=== PATIENT | female | born 1950 | race Caucasian/White ===

== ENCOUNTER 2018-08-16 22:27 | Inpatient (IN) | payer BC, OTHER ==
[2018-08-16 22:48] VITALS: BMI 38.9
[2018-08-16] MEDS ORDERED: Sodium Chloride 0.9% 500 ML IV STA (23:26)
[2018-08-16] MEDS ORDERED: Morphine 2 mg/ml ISec IVP STA (23:29)
[2018-08-17 00:09] LABS: BASO # 0.02 K/mm3 (0.0-2.0); BASO % 0.3 % (0.0-3.0); EOS # 0.1 (0.0-0.7); EOS % 1.6 % (1.5-5.0); HEMOGLOBIN 11.3 g/dL (12.0-16.0); LYMPH # 1.5 (1.2-3.4); LYMPH % 20.6 % (22.0-35.0); MEAN CELL VOLUME 89.9 fl (80.0-105.0); MEAN CORPUSCULAR HEMOGLOBIN 30.1 pg (25.0-35.0); MEAN CORPUSCULAR HGB CONC 33.5 g/dl (31.0-37.0); MEAN PLATELET VOLUME 9.7 fl (7.0-11.0); MONO # 0.5 (0.1-0.6); MONO % 7.1 % (1.0-6.0); RBC 3.75 10^6/uL (3.5-6.1); RED CELL DISTRIBUTION WIDTH 13.4 % (11.5-14.5); VENOUS BLOOD GAS BASE EXCESS 3.9 mmol/L (0.0-2.0); VENOUS BLOOD GAS PO2 108 mm/Hg (30-55); VENOUS BLOOD PH 7.47 (7.32-7.43); WHITE BLOOD COUNT 7.3 10^3/uL (4.5-11.0)
[2018-08-17 00:15] LABS: ALB/GLOB RATIO 1.2 (1.1-1.8); ALBUMIN 3.8 g/dL (3.0-4.8); ALT/SGPT 34 U/L (7-56); AST/SGOT 30 U/L (14-36); BLOOD UREA NITROGEN 11 mg/dL (7-21); CALCIUM 9.3 mg/dL (8.4-10.5); GFR NON-AFRICAN AMERICAN > 60
[2018-08-17 00:26] LABS: TROPONIN I < 0.01 ng/mL
[2018-08-17] MEDS ORDERED: Iohexol 350 MG/100 ML VIAL ONE (01:02)
--- NOTE | 2018-08-17 01:17 | ED PDOC ---
Arrival/HPI - General Historian: Patient - History of Present Illness Narrative History of Present Illness (Text): 08/16/18 23:20 68 year old female, whose past medical history includes CVA, who just moved back to [place] from [place], presents to the emergency department with periumbilical abdominal pain that began suddenly at 5PM today. Patient is unable to describe the pain, but states the pain went away and returned again at 7PM. She also then reports the pain went away and came back prior to arrival. Patient's son reports patient did not have a bowel movement in 3 days. Patient denies any fever, chills, chest pain, shortness of breath, nausea, vomiting, diarrhea, back pain, urinary symptoms, or any other complaints. Time/Duration: Other (today) Symptom Onset: Gradual Activities at Onset: Light Context: Home <Dorcas Kaufman - Last Filed: 08/17/18 02:21> <Reyes Nguyễn - Last Filed: 08/17/18 04:18> - General Chief Complaint: Abdominal Pain Time Seen by Provider: 08/16/18 22:38 Past Medical History - Provider Review Nursing Documentation Reviewed: Yes - Past History Past History: No Previous - Infectious Disease Hx of Infectious Diseases: None - Tetanus Immunization Tetanus Immunization: Unknown - Cardiac Hx Cardiac Disorders: Yes Hx Hypertension: Yes - Pulmonary Hx Respiratory Disorders: No - Neurological Hx Neurological Disorder: No - HEENT Hx HEENT Disorder: Yes Hx Cataracts: Yes (WITH SURGERY AND ALSO,LASER SURGERY WITH PROBLEMS WITH RETINA) - Renal Hx Renal Disorder: No - Endocrine/Metabolic Hx Endocrine Disorders: Yes Hx Diabetes Mellitus Type 2: Yes Hx Hypothyroidism: Yes - Hematological/Oncological Hx Blood Disorders: No - Integumentary Hx Dermatological Disorder: No - Musculoskeletal/Rheumatological Hx Musculoskeletal Disorders: No - Gastrointestinal Hx Gastrointestinal Disorders: No - Genitourinary/Gynecological Hx Genitourinary Disorders: No - Psychiatric Hx Psychophysiologic Disorder: No Hx Substance Use: No - Suicidal Assessment Feels Threatened In Home Enviroment: No <Dorcas Kaufman - Last Filed: 08/17/18 02:21> Family/Social History - Physician Review Nursing Documentation Reviewed: Yes Family/Social History: No Known Family HX Smoking Status: Never Smoked Hx Alcohol Use: No Hx Substance Use: No Hx Substance Use Treatment: No <Dorcas Kaufman - Last Filed: 08/17/18 02:21> Allergies/Home Meds <Dorcas Kaufman - Last Filed: 08/17/18 02:21> <Reyes Nguyễn - Last Filed: 08/17/18 04:18> Allergies/Adverse Reactions: Allergies No Known Allergies Allergy (Verified 08/16/18 22:59) Home Medications: Home Meds Medication Instructions Recorded Confirmed Amlodipine Besylate [Norvasc] 5 mg PO DAILY 03/18/13 08/16/18 Aspirin [Aspir 81] 81 mg PO DAILY 03/18/13 08/16/18 Atorvastatin [Lipitor] 20 mg PO DAILY 08/16/18 08/16/18 Clopidogrel [Plavix] 75 mg PO DAILY 08/16/18 08/16/18 Docusate Sodium [Doc-Q-Lace] 100 mg PO DAILY 08/16/18 08/16/18 Famotidine [Heartburn Prevention] 20 mg PO DAILY 08/16/18 08/16/18 Gabapentin [Neurontin] 300 mg PO DAILY 08/16/18 08/16/18 Irbesartan [Avapro] 300 mg PO DAILY 08/16/18 08/16/18 Review of Systems - Physician Review All systems were reviewed & negative as marked: Yes - Review of Systems Constitutional: absent: Fevers, Other (chills) Respiratory: absent: SOB Cardiovascular: absent: Chest Pain Gastrointestinal: Abdominal Pain. absent: Diarrhea, Nausea, Vomiting Musculoskeletal: absent: Back Pain <Dorcas Kaufman - Last Filed: 08/17/18 02:21> Physical Exam Vital Signs Reviewed: Yes Vital Signs Temp Pulse Resp BP Pulse Ox 08/17/18 01:02 98.0 F 78 18 155/57 H 98 08/16/18 22:35 98.0 F 89 18 147/64 98 Temperature: Afebrile Blood Pressure: Normal Pulse: Regular Respiratory Rate: Normal Appearance: Positive for: Well-Appearing, Non-Toxic, Comfortable Pain Distress: None Mental Status: Positive for: Alert and Oriented X 3 Finger Stick Blood Glucose: 75 - Systems Exam Head: Present: Atraumatic, Normocephalic Mouth: Present: Moist Mucous Membranes Respiratory/Chest: Present: Clear to Auscultation, Good Air Exchange. No: Respiratory Distress, Accessory Muscle Use Cardiovascular: Present: Regular Rate and Rhythm, Normal S1, S2. No: Murmurs Abdomen: Present: Tenderness (diffuse ), Scars (large ventral midline scar noted). No: Distention, Peritoneal Signs Upper Extremity: Present: Normal Inspection. No: Cyanosis, Edema Lower Extremity: Present: Normal Inspection. No: Edema Neurological: Present: GCS=15, Speech Normal Skin: Present: Warm, Dry, Normal Color. No: Rashes Psychiatric: Present: Alert, Oriented x 3 <Dorcas Kaufman - Last Filed: 08/17/18 02:21> Vital Signs Temp Pulse Resp BP Pulse Ox 08/17/18 01:02 98.0 F 78 18 155/57 H 98 08/16/18 22:35 98.0 F 89 18 147/64 98 <Reyes Nguyễn - Last Filed: 08/17/18 04:18> Medical Decision Making ED Course and Treatment: Patient is nontoxic well appearing with stable vital signs presenting with abdominal pain CBC wnl CMP NA; 131 Lipase: wnl pt seen and evaluated by dr. nguyễn 08/17/18 01:[address] room; pt vomited. 4mg zofran given. pt refused ct with IV contrast; states she doesnt like how it feels. doesnt want to take a chance of reactions; ct changed to w/o contrast. CAT scan Pending 08/17/18 02:19 case signed out to dr. nguyễn pending CT results and re-eval and disposition. - Lab Interpretations Lab Results: pO2 108 mm/Hg (30-55) H 08/16/18 23:35 VBG pH 7.47 (7.32-7.43) H 08/16/18 23:35 VBG pCO2 38.0 (40-60) L 08/16/18 23:35 VBG HCO3 27.7 mmol/l (21-28) 08/16/18 23:35 VBG Total CO2 28.9 mmol.L (22-28) H 08/16/18 23:35 VBG O2 Sat (Calc) 98.3 % (40-65) H 08/16/18 23:35 VBG Base Excess 3.9 mmol/L (0.0-2.0) H 08/16/18 23:35 VBG Potassium 4.1 mmol/L (3.6-5.2) 08/16/18 23:35 Sodium 130.0 mmol/L (132-148) L 08/16/18 23:35 Chloride 97.0 mmol/L (98-107) L 08/16/18 23:35 Glucose 86 mg/dl (65-105) 08/16/18 23:35 Lactate 1.1 mmol/L (0.7-2.1) 08/16/18 23:35 FiO2 21.0 % 08/16/18 23:35 Troponin I < 0.01 ng/mL 08/16/18 23:35 Total Bilirubin 0.9 mg/dL (0.2-1.3) 08/16/18 23:35 AST 30 U/L (14-36) 08/16/18 23:35 ALT 34 U/L (7-56) 08/16/18 23:35 Alkaline Phosphatase 76 U/L (38-126) 08/16/18 23:35 Total Protein 7.0 g/dL (5.8-8.3) 08/16/18 23:35 Albumin 3.8 g/dL (3.0-4.8) 08/16/18 23:35 Globulin 3.2 gm/dL 08/16/18 23:35 Albumin/Globulin Ratio 1.2 (1.1-1.8) 08/16/18 23:35 - RAD Interpretation Radiology Orders: 08/16/18 23:25 CHEST PORTABLE [RAD] Stat 08/16/18 23:29 ABD & PELVIS IV CONTRAST ONLY [CT] Stat - Medication Orders Current Medication Orders: Discontinued Medications Sodium Chloride (Sodium Chloride 0.9%) 500 mls @ 999 mls/hr IV .Q31M STA Stop: 08/16/18 23:56 Last Admin: 08/17/18 00:10 Dose: 999 mls/hr eMAR Start Stop Document 08/17/18 00:10 OCS (Rec: 08/17/18 00:10 OCS [id number]) Intravenous Solution Start Date 08/17/18 Start Time 00:10 End Date 08/17/18 End time 00:40 Total Infusion Time 30 Morphine Sulfate (Morphine) 2 mg IVP STAT STA Stop: 08/16/18 23:30 Last Admin: 08/17/18 00:09 Dose: 2 mg [facility] Pain Assessment Document 08/17/18 00:09 OCS (Rec: 08/17/18 00:10 OCS [facility]) Pain Reassessment Is this a pain reassessment? No Sleep Is patient sleeping during reassessment? No Presence of Pain Presence of Pain Yes Pain Scale Used Protocol: PSCALES Pain Scale Used Numeric Location Pain Location Body Site Abdomen Description Description Constant Intensity of Pain at present 10 Pain Behavior Moaning Guarding Irritability Facial Grimacing Aggravating Factors ADL's IVP Administration Document 08/17/18 00:09 OCS (Rec: 08/17/18 00:10 OCS [facility]) Charges for Administration # of IVP Administrations 1 Ondansetron HCl (Zofran Inj) 4 mg IVP STAT STA Stop: 08/16/18 23:30 Last Admin: 08/17/18 00:09 Dose: 4 mg IVP Administration Document 08/17/18 00:09 OCS (Rec: 08/17/18 00:09 OCS [facility]) Charges for Administration # of IVP Administrations 1 <Dorcas Kaufman T - Last Filed: 08/17/18 02:21> ED Course and Treatment: CT SCAN OF THE ABDOMEN AND PELVIS WITHOUT ORAL OR IV CONTRAST. Electronically signed on Aug 17, 2018 3:34:48 AM EDT by: Gene Pemberton M.D. IMPRESSION: Bilateral basilar hypoventilatory pulmonary changes. Mild cardiomegaly. Small sliding hernia. Fluid-filled distended the stomach. Distended gallbladder. Small sliding hiatal hernia. Distended bladder 08/17/18 04:06 Case discussed with medical claims examiner and Dr. Tarango who is aware and agrees with the plan. Accepts patient into his service. - Lab Interpretations Lab Results: pO2 108 mm/Hg (30-55) H 08/16/18 23:35 VBG pH 7.47 (7.32-7.43) H 08/16/18 23:35 VBG pCO2 38.0 (40-60) L 08/16/18 23:35 VBG HCO3 27.7 mmol/l (21-28) 08/16/18 23:35 VBG Total CO2 28.9 mmol.L (22-28) H 08/16/18 23:35 VBG O2 Sat (Calc) 98.3 % (40-65) H 08/16/18 23:35 VBG Base Excess 3.9 mmol/L (0.0-2.0) H 08/16/18 23:35 VBG Potassium 4.1 mmol/L (3.6-5.2) 08/16/18 23:35 Sodium 130.0 mmol/L (132-148) L 08/16/18 23:35 Chloride 97.0 mmol/L (98-107) L 08/16/18 23:35 Glucose 86 mg/dl (65-105) 08/16/18 23:35 Lactate 1.1 mmol/L (0.7-2.1) 08/16/18 23:35 FiO2 21.0 % 08/16/18 23:35 Troponin I < 0.01 ng/mL 08/16/18 23:35 Total Bilirubin 0.9 mg/dL (0.2-1.3) 08/16/18 23:35 AST 30 U/L (14-36) 08/16/18 23:35 ALT 34 U/L (7-56) 08/16/18 23:35 Alkaline Phosphatase 76 U/L (38-126) 08/16/18 23:35 Total Protein 7.0 g/dL (5.8-8.3) 08/16/18 23:35 Albumin 3.8 g/dL (3.0-4.8) 08/16/18 23:35 Globulin 3.2 gm/dL 08/16/18 23:35 Albumin/Globulin Ratio 1.2 (1.1-1.8) 08/16/18 23:35 - RAD Interpretation Radiology Orders: 08/16/18 23:25 CHEST PORTABLE [RAD] Stat 08/16/18 23:29 ABD & PELVIS W/O PO OR IV CONT [CT] Stat - Medication Orders Current Medication Orders: Discontinued Medications Sodium Chloride (Sodium Chloride 0.9%) 500 mls @ 999 mls/hr IV .Q31M STA Stop: 08/16/18 23:56 Last Admin: 08/17/18 00:10 Dose: 999 mls/hr eMAR Start Stop Document 08/17/18 00:10 OCS (Rec: 08/17/18 00:10 OCS [id number]) Intravenous Solution Start Date 08/17/18 Start Time 00:10 End Date 08/17/18 End time 00:40 Total Infusion Time 30 Morphine Sulfate (Morphine) 2 mg IVP STAT STA Stop: 08/16/18 23:30 Last Admin: 08/17/18 00:09 Dose: 2 mg MAR Pain Assessment Document 08/17/18 00:09 OCS (Rec: 08/17/18 00:10 OCS [facility]) Pain Reassessment Is this a pain reassessment? No Sleep Is patient sleeping during reassessment? No Presence of Pain Presence of Pain Yes Pain Scale Used Protocol: PSCALES Pain Scale Used Numeric Location Pain Location Body Site Abdomen Description Description Constant Intensity of Pain at present 10 Pain Behavior Moaning Guarding Irritability Facial Grimacing Aggravating Factors ADL's IVP Administration Document 08/17/18 00:09 OCS (Rec: 08/17/18 00:10 OCS [id number]) Charges for Administration # of IVP Administrations 1 Ondansetron HCl (Zofran Inj) 4 mg IVP STAT STA Stop: 08/16/18 23:30 Last Admin: 08/17/18 00:09 Dose: 4 mg IVP Administration Document 08/17/18 00:09 OCS (Rec: 08/17/18 00:09 OCS [id number]) Charges for Administration # of IVP Administrations 1 Ondansetron HCl (Zofran Inj) 4 mg IVP STAT STA Stop: 08/17/18 01:36 Last Admin: 08/17/18 01:30 Dose: 4 mg IVP Administration Document 08/17/18 01:30 OCS (Rec: 08/17/18 01:42 OCS [place] [id number]-) Charges for Administration # of IVP Administrations 1 <Reyes Nguyễn - Last Filed: 08/17/18 04:18> - Scribe Statement The provider has reviewed the documentation as recorded by the Leonidasibjessica Caputo Provider Scribe Attestation: All medical record entries made by the Scribe were at my direction and personally dictated by me. I have reviewed the chart and agree that the record accurately reflects my personal performance of the history, physical exam, medical decision making, and the department course for this patient. I have also personally directed, reviewed, and agree with the discharge instructions and disposition. <Dorcas Kaufman - Last Filed: 08/17/18 02:21> - PA / STAFF DEVELOPMENT COORDINATOR / Resident Statement DIMAS has reviewed & agrees with the documentation as recorded. DIMAS has examined the patient and agrees with the treatment plan. <Reyes Nguyễn - Last Filed: 08/17/18 04:18> Disposition/Present on Arrival - Present on Arrival Any Indicators Present on Arrival: Yes History of DVT/PE: No History of Uncontrolled Diabetes: Yes Urinary Catheter: No History of Decub. Ulcer: No History Surgical Site Infection Following: None - Disposition Disposition Time: 02:22 <Dorcas Kaufman - Last Filed: 08/17/18 02:21> - Present on Arrival Any Indicators Present on Arrival: No History of DVT/PE: No History of Uncontrolled Diabetes: No Urinary Catheter: No History of Decub. Ulcer: No History Surgical Site Infection Following: None - Disposition Have Diagnosis and Disposition been Completed?: Yes Disposition Time: 04:04 <Reyes Nguyễn - Last Filed: 08/17/18 04:18> - Disposition Diagnosis: Abdominal pain, Intractable vomiting with nausea Disposition: HOSPITALIZED Patient Problems: Current Active Problems Problem Status Onset Abdominal pain Acute Intractable vomiting with nausea Acute Condition: STABLE Referrals: PCP,NO [Primary Care Provider] - Follow up with primary Forms: [email or web address] (Macanese)
[2018-08-17 03:08] LABS: URINE BILIRUBIN NEGATIVE (NEGATIVE); URINE BLOOD NEGATIVE (NEGATIVE); URINE GLUCOSE (UA) NEGATIVE (NEGATIVE); URINE LEUKOCYTE ESTERASE MODERATE Leu/uL (NEGATIVE); URINE PROTEIN NEGATIVE mg/dL (<30 mg/dL); URINE UROBILINOGEN 0.2 E.U./dL (<1 E.U./dL)
[2018-08-17 03:18] LABS: URINE APPEARANCE SL CLOUDY (CLEAR); URINE COLOR YELLOW (YELLOW)
[2018-08-17 03:21] LABS: URINE BACTERIA FEW /hpf; URINE RBC 0 - 2 /hpf (0-2)
[2018-08-17] MEDS ORDERED: DiphenhydrAMINE 50 mg/ml Inj IVP ONE (04:02)
--- NOTE | 2018-08-17 04:27 | CP.PCM.HP ---
<Dong Patel - Last Filed: 08/17/18 05:50> History of Present Illness - History of Present Illness History of Present Illness: Dr Patel [facility] Hospitalist Service 68F PMHx of DM2, HTN, CVA (2018) presents to [facility] with a one day hx of vomiting x5, lightheadedness and abdominal pain. Reports first episode started at 8pm with an immediate onset, states she vomited her food, no blood or coffee ground appearing matter seen. She did not take anything at home to alleviate her nausea or abdominal pain. At this time her abdominal pain has resolved. Pt days she was eating normal food at home and had no new foods introduced to her diet recently. Pt reports constipation for the last 3 days. Pt says she had her stroke in [place], followed up with neurologists and therapists who advanced her diet to soft foods. Of note pt came back to [place] from [place] on 08/09, lives with sons now. Pt denies CP, SOB, FC, syncope, hematemesis, blood in stool/urine, new onset headaches, change in hearing/vision, sick contacts PMHx DM HTN CVA PSx: Abdominal lipoma? hernia? FH: mom DM Soc: former smoker 5 ppy, denies drugs alc Allergies: denies Present on Admission - Present on Admission Any Indicators Present on Admission: No Review of Systems - Constitutional Constitutional: absent: Chills, Fatigue, Fever, Headache - EENT Eyes: absent: Change in Vision Ears: absent: Disequilibrium Nose/Mouth/Throat: Dysphagia (tolerates soft foods). absent: Hoarsness, Sore Throat - Cardiovascular Cardiovascular: absent: Chest Pain, Dyspnea, Edema, Pain Radiating to Arm/Neck/Jaw, Leg Edema, Orthopnea, Palpitations, Syncope - Respiratory Respiratory: absent: Wheezing, Snoring, Chest Congestion, Pain with Coughing - Gastrointestinal Gastrointestinal: Abdominal Pain, Constipation (3 days), Nausea, Vomiting (x5). absent: Cramping, Hematemesis - Genitourinary Genitourinary: absent: Dysuria, Urinary Incontinence - Musculoskeletal Musculoskeletal: Muscle Weakness (R Upper and Lower extremities). absent: Myalgias, Numbness, Stiffness - Integumentary Integumentary: absent: Rash - Neurological Neurological: Dizziness. absent: Loss of Vision, Sensory Deficit, Syncope, Tingling, Vertigo, Weakness - Psychiatric Psychiatric: absent: Anxiety, Depression Past Patient History - Infectious Disease Hx of Infectious Diseases: None - Tetanus Immunizations Tetanus Immunization: Unknown - Past Social History Smoking Status: Never Smoked - CARDIAC Hx Cardiac Disorders: Yes Hx Hypertension: Yes - PULMONARY Hx Respiratory Disorders: No - NEUROLOGICAL Hx Neurological Disorder: No - HEENT Hx HEENT Problems: Yes Hx Cataracts: Yes (WITH SURGERY AND ALSO,LASER SURGERY WITH PROBLEMS WITH RETINA) - RENAL Hx Chronic Kidney Disease: No - ENDOCRINE/METABOLIC Hx Endocrine Disorders: Yes Hx Diabetes Mellitus Type 2: Yes Hx Hypothyroidism: Yes - HEMATOLOGICAL/ONCOLOGICAL Hx Blood Disorders: No - INTEGUMENTARY Hx Dermatological Problems: No - MUSCULOSKELETAL/RHEUMATOLOGICAL Hx Musculoskeletal Disorders: No - GASTROINTESTINAL Hx Gastrointestinal Disorders: No - GENITOURINARY/GYNECOLOGICAL Hx Genitourinary Disorders: No - PSYCHIATRIC Hx Psychophysiologic Disorder: No Hx Substance Use: No - SURGICAL HISTORY Hx Surgeries: Yes (TONSILLECTOMY) Meds Allergies/Adverse Reactions: Allergies Allergy/AdvReac Type Severity Reaction Status Date / Time No Known Allergies Allergy Verified 08/16/18 22:59 Physical Exam - Constitutional Appears: In Acute Distress - Head Exam Head Exam: ATRAUMATIC, NORMAL INSPECTION - Eye Exam Eye Exam: EOMI, Normal appearance. absent: Scleral icterus Pupil Exam: NORMAL ACCOMODATION, PERRL - ENT Exam ENT Exam: Mucous Membranes Moist - Neck Exam Neck exam: Negative for: Lymphadenopathy, Tenderness - Respiratory Exam Respiratory Exam: Clear to Auscultation Bilateral. absent: Rales, Wheezes, Stridor - Cardiovascular Exam Cardiovascular Exam: RRR, +S1, +S2 - GI/Abdominal Exam GI & Abdominal Exam: Normal Bowel Sounds, Soft. absent: Firm, Guarding, Rebound, Tenderness - Extremities Exam Extremities exam: Negative for: pedal edema, tenderness - Neurological Exam Neurological exam: Alert, CN II-XII Intact, Oriented x3 Additional comments: R upper and lower extremity motor deficits noted - Skin Skin Exam: Diaphoretic, Pallor, Warm Results - Vital Signs Recent Vital Signs: Last Vital Signs Temp 98.0 F 08/17/18 02:26 Pulse 84 08/17/18 02:26 Resp 18 08/17/18 02:26 BP 149/65 08/17/18 02:26 Pulse Ox 100 08/17/18 02:26 - Labs Result Diagrams: 08/16/18 23:35 08/16/18 23:35 Labs: Laboratory Results - last 24 hr 08/16/18 08/16/18 08/16/18 23:35 23:35 23:35 WBC 7.3 RBC 3.75 Hgb 11.3 L Hct 33.7 L MCV 89.9 MCH 30.1 MCHC 33.5 RDW 13.4 Plt Count 216 MPV 9.7 Neut % (Auto) 70.4 H Lymph % (Auto) 20.6 L Sanders % (Auto) 7.1 H Eos % (Auto) 1.6 Baso % (Auto) 0.3 Lymph # (Auto) 1.5 Sanders # (Auto) 0.5 Eos # (Auto) 0.1 Baso # (Auto) 0.02 Absolute Neuts (auto) 5.12 pO2 108 H VBG pH 7.47 H VBG pCO2 38.0 L VBG HCO3 27.7 VBG Total CO2 28.9 H VBG O2 Sat (Calc) 98.3 H VBG Base Excess 3.9 H VBG Potassium 4.1 Sodium 130.0 L 131 L Chloride 97.0 L 94 L Glucose 86 Lactate 1.1 FiO2 21.0 Potassium 3.7 Carbon Dioxide 26 Anion Gap 15 BUN 11 Creatinine 0.7 Est GFR ( Amer) > 60 Est GFR (Non-Af Amer) > 60 Random Glucose 84 Calcium 9.3 Total Bilirubin 0.9 AST 30 ALT 34 Alkaline Phosphatase 76 Lactate Dehydrogenase 749 H Total Creatine Kinase 39 Troponin I < 0.01 Total Protein 7.0 Albumin 3.8 Globulin 3.2 Albumin/Globulin Ratio 1.2 Lipase Venous Blood Potassium 4.1 Urine Color Urine Appearance Urine pH Ur Specific [place] Urine Protein Urine Glucose (UA) Urine Ketones Urine Blood Urine Nitrate Urine Bilirubin Urine Urobilinogen Ur Leukocyte Esterase Urine RBC Urine WBC Ur Epithelial Cells Urine Bacteria 08/16/18 08/17/18 23:35 02:17 WBC RBC Hgb Hct MCV MCH MCHC RDW Plt Count MPV Neut % (Auto) Lymph % (Auto) Sanders % (Auto) Eos % (Auto) Baso % (Auto) Lymph # (Auto) Sanders # (Auto) Eos # (Auto) Baso # (Auto) Absolute Neuts (auto) pO2 VBG pH VBG pCO2 VBG HCO3 VBG Total CO2 VBG O2 Sat (Calc) VBG Base Excess VBG Potassium Sodium Chloride Glucose Lactate FiO2 Potassium Carbon Dioxide Anion Gap BUN Creatinine Est GFR ( Amer) Est GFR (Non-Af Amer) Random Glucose Calcium Total Bilirubin AST ALT Alkaline Phosphatase Lactate Dehydrogenase Total Creatine Kinase Troponin I Total Protein Albumin Globulin Albumin/Globulin Ratio Lipase 52 Venous Blood Potassium Urine Color Yellow Urine Appearance Sl cloudy Urine pH 6.0 Ur Specific [place] <= 1.005 Urine Protein Negative Urine Glucose (UA) Negative Urine Ketones Negative Urine Blood Negative Urine Nitrate Negative Urine Bilirubin Negative Urine Urobilinogen 0.2 Ur Leukocyte Esterase Moderate H Urine RBC 0 - 2 Urine WBC 5 - 10 H Ur Epithelial Cells 3 - 4 Urine Bacteria Few Assessment & Plan - Assessment and Plan (Free Text) Assessment: 68F pmhx of DM HTN CVA admitted for intractable vomiting Plan: Intractable Vomiting -prelim read CT abd neg for acute disease process: f/u official read -Zofran and Reglan q4 ivp prn -LRs @ 75 -Monitor electrolytes on f/u cmp -GI Dr Lebron consulted: f/u recs -Pepcid 20 ivp daily -NPO Constipation -Lactulose 20 stat dose -monitor for BMs Asymptomatic UTI -afebrile, WBCS on cbc wnl -UA pos Leuk est and WBCs -pt denies symptoms -awaiting Urine Culture -Monitor I&Os DM2 -ISS medium -f/u A1C: r/o possible Diabetic Gastroparesis -Hypoglycemic protocol HTN -Norvasc 2.5 daily -Losartan 100mg Hx of CVA -NPO: when advancing diet, do not exceed soft foods -Fall Risk Protocol -ASA 81 daily -Plavix 75 daily PPx -Pepcid 20 ivp -NPO except meds -Heparin 5000u q8 -ASA , Plavix -Fall risk protocol CK PGY1 <Korey Tarango - Last Filed: 08/17/18 15:58> Results - Vital Signs Recent Vital Signs: Last Vital Signs Temp 98.0 F 08/17/18 07:00 Pulse 90 08/17/18 07:00 Resp 20 08/17/18 07:00 BP 144/68 08/17/18 09:30 Pulse Ox 99 08/17/18 07:00 - Labs Result Diagrams: 08/17/18 08:00 08/17/18 08:00 Labs: Laboratory Results - last 24 hr 08/16/18 08/16/18 08/16/18 23:35 23:35 23:35 WBC 7.3 RBC 3.75 Hgb 11.3 L Hct 33.7 L MCV 89.9 MCH 30.1 MCHC 33.5 RDW 13.4 Plt Count 216 MPV 9.7 Neut % (Auto) 70.4 H Lymph % (Auto) 20.6 L Sanders % (Auto) 7.1 H Eos % (Auto) 1.6 Baso % (Auto) 0.3 Lymph # (Auto) 1.5 Sanders # (Auto) 0.5 Eos # (Auto) 0.1 Baso # (Auto) 0.02 Absolute Neuts (auto) 5.12 pO2 108 H VBG pH 7.47 H VBG pCO2 38.0 L VBG HCO3 27.7 VBG Total CO2 28.9 H VBG O2 Sat (Calc) 98.3 H VBG Base Excess 3.9 H VBG Potassium 4.1 Sodium 130.0 L 131 L Chloride 97.0 L 94 L Glucose 86 Lactate 1.1 FiO2 21.0 Potassium 3.7 Carbon Dioxide 26 Anion Gap 15 BUN 11 Creatinine 0.7 Est GFR ( Amer) > 60 Est GFR (Non-Af Amer) > 60 POC Glucose (mg/dL) Random Glucose 84 Hemoglobin A1c Calcium 9.3 Total Bilirubin 0.9 AST 30 ALT 34 Alkaline Phosphatase 76 Lactate Dehydrogenase 749 H Total Creatine Kinase 39 Troponin I < 0.01 Total Protein 7.0 Albumin 3.8 Globulin 3.2 Albumin/Globulin Ratio 1.2 Lipase Venous Blood Potassium 4.1 Urine Color Urine Appearance Urine pH Ur Specific [place] Urine Protein Urine Glucose (UA) Urine Ketones Urine Blood Urine Nitrate Urine Bilirubin Urine Urobilinogen Ur Leukocyte Esterase Urine RBC Urine WBC Ur Epithelial Cells Urine Bacteria 08/16/18 08/16/18 08/17/18 23:35 23:46 02:17 WBC RBC Hgb Hct MCV MCH MCHC RDW Plt Count MPV Neut % (Auto) Lymph % (Auto) Sanders % (Auto) Eos % (Auto) Baso % (Auto) Lymph # (Auto) Sanders # (Auto) Eos # (Auto) Baso # (Auto) Absolute Neuts (auto) pO2 VBG pH VBG pCO2 VBG HCO3 VBG Total CO2 VBG O2 Sat (Calc) VBG Base Excess VBG Potassium Sodium Chloride Glucose Lactate FiO2 Potassium Carbon Dioxide Anion Gap BUN Creatinine Est GFR ( Amer) Est GFR (Non-Af Amer) POC Glucose (mg/dL) 75 Random Glucose Hemoglobin A1c Calcium Total Bilirubin AST ALT Alkaline Phosphatase Lactate Dehydrogenase Total Creatine Kinase Troponin I Total Protein Albumin Globulin Albumin/Globulin Ratio Lipase 52 Venous Blood Potassium Urine Color Yellow Urine Appearance Sl cloudy Urine pH 6.0 Ur Specific [place] <= 1.005 Urine Protein Negative Urine Glucose (UA) Negative Urine Ketones Negative Urine Blood Negative Urine Nitrate Negative Urine Bilirubin Negative Urine Urobilinogen 0.2 Ur Leukocyte Esterase Moderate H Urine RBC 0 - 2 Urine WBC 5 - 10 H Ur Epithelial Cells 3 - 4 Urine Bacteria Few 08/17/18 08/17/18 08/17/18 07:46 08:00 08:00 WBC 5.2 D RBC 3.64 Hgb 10.7 L Hct 32.5 L MCV 89.3 MCH 29.4 MCHC 32.9 RDW 13.1 Plt Count 185 MPV 8.9 Neut % (Auto) 75.8 H Lymph % (Auto) 20.1 L Sanders % (Auto) 3.1 Eos % (Auto) 0.4 L Baso % (Auto) 0.6 Lymph # (Auto) 1.1 L Sanders # (Auto) 0.2 Eos # (Auto) 0.0 Baso # (Auto) 0.03 Absolute Neuts (auto) 3.96 pO2 VBG pH VBG pCO2 VBG HCO3 VBG Total CO2 VBG O2 Sat (Calc) VBG Base Excess VBG Potassium Sodium 135 Chloride 99 Glucose Lactate FiO2 Potassium 4.5 Carbon Dioxide 27 Anion Gap 12 BUN 10 Creatinine 0.7 Est GFR ( Amer) > 60 Est GFR (Non-Af Amer) > 60 POC Glucose (mg/dL) 145 H Random Glucose 138 H Hemoglobin A1c Calcium 9.2 Total Bilirubin 0.7 AST 22 ALT 29 Alkaline Phosphatase 75 Lactate Dehydrogenase Total Creatine Kinase Troponin I Total Protein 6.6 Albumin 3.4 Globulin 3.1 Albumin/Globulin Ratio 1.1 Lipase Venous Blood Potassium Urine Color Urine Appearance Urine pH Ur Specific [place] Urine Protein Urine Glucose (UA) Urine Ketones Urine Blood Urine Nitrate Urine Bilirubin Urine Urobilinogen Ur Leukocyte Esterase Urine RBC Urine WBC Ur Epithelial Cells Urine Bacteria 08/17/18 08/17/18 08:00 11:35 WBC RBC Hgb Hct MCV MCH MCHC RDW Plt Count MPV Neut % (Auto) Lymph % (Auto) Sanders % (Auto) Eos % (Auto) Baso % (Auto) Lymph # (Auto) Sanders # (Auto) Eos # (Auto) Baso # (Auto) Absolute Neuts (auto) pO2 VBG pH VBG pCO2 VBG HCO3 VBG Total CO2 VBG O2 Sat (Calc) VBG Base Excess VBG Potassium Sodium Chloride Glucose Lactate FiO2 Potassium Carbon Dioxide Anion Gap BUN Creatinine Est GFR ( Amer) Est GFR (Non-Af Amer) POC Glucose (mg/dL) 128 H Random Glucose Hemoglobin A1c 8.5 H Calcium Total Bilirubin AST ALT Alkaline Phosphatase Lactate Dehydrogenase Total Creatine Kinase Troponin I Total Protein Albumin Globulin Albumin/Globulin Ratio Lipase Venous Blood Potassium Urine Color Urine Appearance Urine pH Ur Specific [place] Urine Protein Urine Glucose (UA) Urine Ketones Urine Blood Urine Nitrate Urine Bilirubin Urine Urobilinogen Ur Leukocyte Esterase Urine RBC Urine WBC Ur Epithelial Cells Urine Bacteria Attending/Attestation - Attestation I have personally seen and examined this patient.: Yes I have fully participated in the care of the patient.: Yes I have reviewed all pertinent clinical information: Yes Notes (Text): 08/17/18 15:57 Patient was seen when she was in bed # 360-02. Medical record was reviewed. Agree with history, physical examination, assessment and plan.
[2018-08-17] MEDS ORDERED: Dextrose 50% SYRINGE Inj (50 ml) IV PRN (05:46)
[2018-08-17 08:16] LABS: BASO # 0.03 K/mm3 (0.0-2.0); BASO % 0.6 % (0.0-3.0); EOS % 0.4 % (1.5-5.0); HEMOGLOBIN 10.7 g/dL (12.0-16.0); LYMPH # 1.1 (1.2-3.4); LYMPH % 20.1 % (22.0-35.0); MEAN CELL VOLUME 89.3 fl (80.0-105.0); MEAN CORPUSCULAR HEMOGLOBIN 29.4 pg (25.0-35.0); MEAN CORPUSCULAR HGB CONC 32.9 g/dl (31.0-37.0); MEAN PLATELET VOLUME 8.9 fl (7.0-11.0); MONO # 0.2 (0.1-0.6); MONO % 3.1 % (1.0-6.0); RBC 3.64 10^6/uL (3.5-6.1); RED CELL DISTRIBUTION WIDTH 13.1 % (11.5-14.5); WHITE BLOOD COUNT 5.2 10^3/uL (4.5-11.0)
[2018-08-17] MEDS: Insulin Reg-MEDIUM-Coverage SC SCH ×4 (08:22→21:53)
[2018-08-17 08:29] LABS: ALB/GLOB RATIO 1.1 (1.1-1.8); ALBUMIN 3.4 g/dL (3.0-4.8); ALT/SGPT 29 U/L (7-56); AST/SGOT 22 U/L (14-36); BLOOD UREA NITROGEN 10 mg/dL (7-21); CALCIUM 9.2 mg/dL (8.4-10.5); GFR NON-AFRICAN AMERICAN > 60
--- NOTE | 2018-08-17 08:34 | CON ---
DATE: 08/17/2018 HISTORY OF PRESENT ILLNESS: I examined Ms. Buck this morning. She is a 68-year-old female with past medical history of diabetes, hypertension, a stroke in 2018, presented with history of one day of vomiting with moderate abdominal pain. There is no evidence of rectal bleeding or hematemesis. She indicates that since her recent surgery, she had being having pain in the periumbilical area as well as in the suprapubic area. When I tried to ask her what sort of surgery she had, could not elaborate probably based on stroke issues and language barrier. She pointed to a midline abdominal scar, which most likely resulted from a laparotomy and possible hernia repair. The patient is a poor historian and does mention that she speaks broken Icelandic, but still does not elaborate her problems well. PHYSICAL EXAMINATION VITAL SIGNS: I reviewed this patient's vital signs. HEENT: Noncontributory. LUNGS: Decreased breath sounds at the bases. HEART: Irregular rhythm. ABDOMEN: Barely protuberant. Mild tenderness in the epigastric area noted. There is mild tenderness in the area of the right lower quadrant, right periumbilical as well as the suprapubic area. She does not seem to be tender in the area of the left paraumbilical and all four quadrants. LABORATORY DATA: Indicate normal white count. H and H were 11/33, platelet count 216. Chemistry; sodium 131, LDH 749. Urine has elevated white cells and leukocyte esterase. CT is not interpreted at the current time point, but does indicate distended gallbladder, also the urine bladder is markedly enlarged. She has a substantial amount of stool located in the area of the cecum to the proximal ascending colon. The stomach is distended. Previous CT scan was not significant for a mesh type of thing that you would see in her hernia repair. ASSESSMENT AND PLAN: This is a 68-year-old female admitted with a history of apparent nausea and vomiting with a persistent abdominal pain, which has been occurring after her surgical procedure, which I presume she had in [place]. Note that I reviewed the patient's current medications one of which includes Plavix. The official report of the CT will be reported later. At the current time point, because of nonspecific problems suggest a surgical consult and continue with the current medications including lactated Ringer's and Zofran. One may want to stop Reglan at the current time point due to the current issues of possible partial bowel obstruction type picture. The patient is currently on Pepcid intravenous. Ricky Alcantar DO, PhD LIS[facility]ET
--- NOTE | 2018-08-17 09:09 | RAD ---
Date of service: 08/16/2018 HISTORY: abd pain COMPARISON: 03/09/2013 TECHNIQUE: 1 view obtained. FINDINGS: LUNGS: No active pulmonary disease. PLEURA: No significant pleural effusion identified, no pneumothorax apparent. CARDIOVASCULAR: No aortic atherosclerotic calcification present. Normal cardiac size. No pulmonary vascular congestion. OSSEOUS STRUCTURES: No significant abnormalities. VISUALIZED UPPER ABDOMEN: Normal. OTHER FINDINGS: None. IMPRESSION: No active disease.
[2018-08-17] MEDS: Lactated Ringer's 1,000 ML IV SCH (09:43)
--- NOTE | 2018-08-17 10:22 | CT ---
PROCEDURE: CT Abdomen and Pelvis without Oral or IV contrast. HISTORY: abd pain COMPARISON: Gallbladder ultrasound performed 03/09/13 TECHNIQUE: Contiguous axial images of the abdomen and pelvis. No oral or IV contrast administered. Coronal and Sagittal reformats generated and reviewed. Radiation dose: Total exam DLP = 1460.91 mGy-cm. This CT exam was performed using one or more of the following dose reduction techniques: Automated exposure control, adjustment of the mA and/or kV according to patient size, and/or use of iterative reconstruction technique. FINDINGS: There is limited evaluation of the solid organs without the administration of IV contrast. LOWER THORAX: No visible consolidation, pleural effusion, or pneumothorax. LIVER: Unremarkable. GALLBLADDER AND BILE DUCTS: Gallbladder distension PANCREAS: Unremarkable. SPLEEN: Unremarkable. ADRENALS: Bilateral adrenal gland nodular hypertrophy. 8 mm left adrenal gland nodule measures less than 10 HU consistent with adenoma. KIDNEYS AND URETERS: No hydronephrosis or obstructing renal calculus. BLADDER: Urinary bladder distension. REPRODUCTIVE: Uterus is absent consistent with hysterectomy. APPENDIX: The appendix is not identified; correlate for history of appendectomy. No secondary signs of acute appendicitis. BOWEL: The stomach is nondistended. Lack of oral contrast limits evaluation for bowel pathology. The bowel loops appear within normal limits of caliber without evidence of intestinal obstruction. PERITONEUM: No significant free fluid. No definite free air. LYMPH NODES: No bulky lymphadenopathy identified. VASCULATURE: Atherosclerotic calcifications of the aorta. No aortic aneurysm. BONES: Degenerative changes of the spine. OTHER FINDINGS: None. IMPRESSION: Gallbladder distension. No calcified gallstones identified. Distended urinary bladder. Bilateral adrenal gland nodular hypertrophy. 8 mm left adrenal gland nodule measures less than 10 HU consistent with adenoma. Additional findings as above. Preliminary impression was provided by [facility].
--- NOTE | 2018-08-17 15:17 | CT ---
Date of service: 08/17/2018 PROCEDURE: CT HEAD WITHOUT CONTRAST. HISTORY: hx of stroke COMPARISON: None available. TECHNIQUE: Axial computed tomography images were obtained through the head/brain without intravenous contrast. Radiation dose: Total exam DLP = 914.41 mGy-cm. This CT exam was performed using one or more of the following dose reduction techniques: Automated exposure control, adjustment of the mA and/or kV according to patient size, and/or use of iterative reconstruction technique. FINDINGS: HEMORRHAGE: No intracranial hemorrhage. BRAIN: Diffuse atrophy with prominence of the ventricles and sulci noted. No mass effect or edema. Intracranial atherosclerosis. Hypodense region within the left thalamus and left occipital lobe consistent with infarction. Scattered white matter hypodensities, which are nonspecific, but often seen with chronic microvascular ischemic disease. Please note that MRI with diffusion imaging is more sensitive in the detection of acute ischemic event. VENTRICLES: No hydrocephalus. CALVARIUM: Unremarkable. PARANASAL SINUSES: Mucosal thickening of the ethmoid air cells. MASTOID AIR CELLS: Unremarkable as visualized. No inflammatory changes. OTHER FINDINGS: None. IMPRESSION: Hypodense region within the left thalamus and left occipital lobe consistent with infarction. Additional findings as above. Please note that MRI with diffusion imaging is more sensitive in the detection of acute ischemic event.
--- NOTE | 2018-08-17 16:33 | CP.PCM.CON ---
<Alan Posey - Last Filed: 08/17/18 16:34> History of Present Illness - History of Present Illness History of Present Illness: Alan Posey PGY2 Neurology Consult Note for Dr. Chowdary Consult Requested by: Dr. Hedrick [id number] PMHx of DM2, HTN, CVA (2018) presented to [facility] with a one day hx of vomiting x5, lightheadedness and abdominal pain. We are consulted for aphasia, and questionable baseline mental status. Patient is unable to provide history. Family told ED initially patient had a recent stroke in [place]. Unable to obtain full ROS. PMHx DM HTN CVA PSx: Abdominal hernia FH: mom DM Soc: former smoker 5 ppy, denies drugs alc Allergies: denies Review of Systems - Review of Systems Review of Systems: unable to obtain due to mental status Past Patient History - Infectious Disease Hx of Infectious Diseases: None - Tetanus Immunizations Tetanus Immunization: Unknown - Past Social History Smoking Status: Never Smoked - CARDIAC Hx Hypertension: Yes - PULMONARY Hx Respiratory Disorders: No - NEUROLOGICAL HX Cerebrovascular Accident: Yes (x2; june 2018, also 2018) - HEENT Hx HEENT Problems: Yes Hx Cataracts: Yes (WITH SURGERY AND ALSO,LASER SURGERY WITH PROBLEMS WITH RETINA) - RENAL Hx Chronic Kidney Disease: No - ENDOCRINE/METABOLIC Hx Diabetes Mellitus Type 2: Yes - HEMATOLOGICAL/ONCOLOGICAL Hx Blood Disorders: No - INTEGUMENTARY Hx Dermatological Problems: No - MUSCULOSKELETAL/RHEUMATOLOGICAL Hx Musculoskeletal Disorders: No - GASTROINTESTINAL Hx Gastrointestinal Disorders: No - GENITOURINARY/GYNECOLOGICAL Hx Genitourinary Disorders: No - PSYCHIATRIC Hx Psychophysiologic Disorder: No Hx Substance Use: No - SURGICAL HISTORY Hx Surgeries: Yes (TONSILLECTOMY) Meds Allergies/Adverse Reactions: Allergies Allergy/AdvReac Type Severity Reaction Status Date / Time No Known Allergies Allergy Verified 08/16/18 22:59 - Medications Medications: Current Medications Amlodipine Besylate (Norvasc) 2.5 mg PO DAILY [facility] Last Admin: 08/17/18 09:30 Dose: 2.5 mg Aspirin (Ecotrin) 81 mg PO DAILY [facility] Last Admin: 08/17/18 09:29 Dose: 81 mg Atorvastatin Calcium (Lipitor) 20 mg PO DAILY [facility] Last Admin: 08/17/18 09:29 Dose: 20 mg Clopidogrel Bisulfate (Plavix) 75 mg PO DAILY [facility] Last Admin: 08/17/18 09:31 Dose: 75 mg Dextrose (Dextrose 50% Inj) 0 ml IV STAT PRN; Protocol PRN Reason: Hypoglycemia Protocol Docusate Sodium (Colace) 100 mg PO DAILY [facility] Last Admin: 08/17/18 14:12 Dose: 100 mg Famotidine (Pepcid) 20 mg IVP DAILY [facility] Last Admin: 08/17/18 09:31 Dose: 20 mg Gabapentin (Neurontin) 300 mg PO DAILY [facility]; Protocol Last Admin: 08/17/18 09:29 Dose: 300 mg Heparin Sodium (Porcine) (Heparin) 5,000 units SC Q8 [facility]; Protocol Last Admin: 08/17/18 14:12 Dose: 5,000 units Lactated Ringer's (Lactated Ringer's) 1,000 mls @ 75 mls/hr IV .[id number] [facility] Last Admin: 08/17/18 09:43 Dose: 75 mls/hr Dextrose (Dextrose 5% In Water 1000 Ml) 1,000 mls @ 0 mls/hr IV .Q0M PRN; Protocol PRN Reason: Hypoglycemia Protocol Insulin Human Regular (Humulin R Med) 0 units SC ACHS [facility]; Protocol Last Admin: 08/17/18 12:55 Dose: Not Given Losartan Potassium (Cozaar) 100 mg PO DAILY [facility] Last Admin: 08/17/18 09:29 Dose: 100 mg Metoclopramide HCl (Reglan) 10 mg IVP Q4 [facility] Last Admin: 08/17/18 14:13 Dose: 10 mg Ondansetron HCl (Zofran Inj) 4 mg IVP Q4 PRN PRN Reason: Nausea/Vomiting Physical Exam - Constitutional Appears: No Acute Distress - Head Exam Head Exam: ATRAUMATIC, NORMAL INSPECTION, NORMOCEPHALIC - Eye Exam Eye Exam: EOMI, Normal appearance Pupil Exam: PERRL - ENT Exam ENT Exam: Mucous Membranes Moist - Neurological Exam Neurological exam: Alert Additional comments: right sided upper and lower extremity weakness, receptive and expressive aphasia, right sensory decreased upper and lower Results - Vital Signs Recent Vital Signs: Last Vital Signs Temp 97.2 F L 08/17/18 16:27 Pulse 76 08/17/18 16:27 Resp 18 08/17/18 16:27 BP 113/69 08/17/18 16:27 Pulse Ox 97 08/17/18 16:27 - Labs Result Diagrams: 08/17/18 08:00 08/17/18 08:00 Labs: Laboratory Results - last 24 hr 08/16/18 08/16/18 08/16/18 23:35 23:35 23:35 WBC 7.3 RBC 3.75 Hgb 11.3 L Hct 33.7 L MCV 89.9 MCH 30.1 MCHC 33.5 RDW 13.4 Plt Count 216 MPV 9.7 Neut % (Auto) 70.4 H Lymph % (Auto) 20.6 L [place] % (Auto) 7.1 H Eos % (Auto) 1.6 Baso % (Auto) 0.3 Lymph # (Auto) 1.5 [place] # (Auto) 0.5 Eos # (Auto) 0.1 Baso # (Auto) 0.02 Absolute Neuts (auto) 5.12 pO2 108 H VBG pH 7.47 H VBG pCO2 38.0 L VBG HCO3 27.7 VBG Total CO2 28.9 H VBG O2 Sat (Calc) 98.3 H VBG Base Excess 3.9 H VBG Potassium 4.1 Sodium 130.0 L 131 L Chloride 97.0 L 94 L Glucose 86 Lactate 1.1 FiO2 21.0 Potassium 3.7 Carbon Dioxide 26 Anion Gap 15 BUN 11 Creatinine 0.7 Est GFR ( Amer) > 60 Est GFR (Non-Af Amer) > 60 POC Glucose (mg/dL) Random Glucose 84 Hemoglobin A1c Calcium 9.3 Total Bilirubin 0.9 AST 30 ALT 34 Alkaline Phosphatase 76 Lactate Dehydrogenase 749 H Total Creatine Kinase 39 Troponin I < 0.01 Total Protein 7.0 Albumin 3.8 Globulin 3.2 Albumin/Globulin Ratio 1.2 Lipase Venous Blood Potassium 4.1 Urine Color Urine Appearance Urine pH Ur Specific [place] Urine Protein Urine Glucose (UA) Urine Ketones Urine Blood Urine Nitrate Urine Bilirubin Urine Urobilinogen Ur Leukocyte Esterase Urine RBC Urine WBC Ur Epithelial Cells Urine Bacteria 08/16/18 08/16/18 08/17/18 23:35 23:46 02:17 WBC RBC Hgb Hct MCV MCH MCHC RDW Plt Count MPV Neut % (Auto) Lymph % (Auto) [place] % (Auto) Eos % (Auto) Baso % (Auto) Lymph # (Auto) [place] # (Auto) Eos # (Auto) Baso # (Auto) Absolute Neuts (auto) pO2 VBG pH VBG pCO2 VBG HCO3 VBG Total CO2 VBG O2 Sat (Calc) VBG Base Excess VBG Potassium Sodium Chloride Glucose Lactate FiO2 Potassium Carbon Dioxide Anion Gap BUN Creatinine Est GFR ( Amer) Est GFR (Non-Af Amer) POC Glucose (mg/dL) 75 Random Glucose Hemoglobin A1c Calcium Total Bilirubin AST ALT Alkaline Phosphatase Lactate Dehydrogenase Total Creatine Kinase Troponin I Total Protein Albumin Globulin Albumin/Globulin Ratio Lipase 52 Venous Blood Potassium Urine Color Yellow Urine Appearance Sl cloudy Urine pH 6.0 Ur Specific [place] <= 1.005 Urine Protein Negative Urine Glucose (UA) Negative Urine Ketones Negative Urine Blood Negative Urine Nitrate Negative Urine Bilirubin Negative Urine Urobilinogen 0.2 Ur Leukocyte Esterase Moderate H Urine RBC 0 - 2 Urine WBC 5 - 10 H Ur Epithelial Cells 3 - 4 Urine Bacteria Few 08/17/18 08/17/18 08/17/18 07:46 08:00 08:00 WBC 5.2 D RBC 3.64 Hgb 10.7 L Hct 32.5 L MCV 89.3 MCH 29.4 MCHC 32.9 RDW 13.1 Plt Count 185 MPV 8.9 Neut % (Auto) 75.8 H Lymph % (Auto) 20.1 L [place] % (Auto) 3.1 Eos % (Auto) 0.4 L Baso % (Auto) 0.6 Lymph # (Auto) 1.1 L [place] # (Auto) 0.2 Eos # (Auto) 0.0 Baso # (Auto) 0.03 Absolute Neuts (auto) 3.96 pO2 VBG pH VBG pCO2 VBG HCO3 VBG Total CO2 VBG O2 Sat (Calc) VBG Base Excess VBG Potassium Sodium 135 Chloride 99 Glucose Lactate FiO2 Potassium 4.5 Carbon Dioxide 27 Anion Gap 12 BUN 10 Creatinine 0.7 Est GFR ( Amer) > 60 Est GFR (Non-Af Amer) > 60 POC Glucose (mg/dL) 145 H Random Glucose 138 H Hemoglobin A1c Calcium 9.2 Total Bilirubin 0.7 AST 22 ALT 29 Alkaline Phosphatase 75 Lactate Dehydrogenase Total Creatine Kinase Troponin I Total Protein 6.6 Albumin 3.4 Globulin 3.1 Albumin/Globulin Ratio 1.1 Lipase Venous Blood Potassium Urine Color Urine Appearance Urine pH Ur Specific [place] Urine Protein Urine Glucose (UA) Urine Ketones Urine Blood Urine Nitrate Urine Bilirubin Urine Urobilinogen Ur Leukocyte Esterase Urine RBC Urine WBC Ur Epithelial Cells Urine Bacteria 08/17/18 08/17/18 08/17/18 08:00 11:35 16:03 WBC RBC Hgb Hct MCV MCH MCHC RDW Plt Count MPV Neut % (Auto) Lymph % (Auto) [place] % (Auto) Eos % (Auto) Baso % (Auto) Lymph # (Auto) [place] # (Auto) Eos # (Auto) Baso # (Auto) Absolute Neuts (auto) pO2 VBG pH VBG pCO2 VBG HCO3 VBG Total CO2 VBG O2 Sat (Calc) VBG Base Excess VBG Potassium Sodium Chloride Glucose Lactate FiO2 Potassium Carbon Dioxide Anion Gap BUN Creatinine Est GFR ( Amer) Est GFR (Non-Af Amer) POC Glucose (mg/dL) 128 H 75 Random Glucose Hemoglobin A1c 8.5 H Calcium Total Bilirubin AST ALT Alkaline Phosphatase Lactate Dehydrogenase Total Creatine Kinase Troponin I Total Protein Albumin Globulin Albumin/Globulin Ratio Lipase Venous Blood Potassium Urine Color Urine Appearance Urine pH Ur Specific [place] Urine Protein Urine Glucose (UA) Urine Ketones Urine Blood Urine Nitrate Urine Bilirubin Urine Urobilinogen Ur Leukocyte Esterase Urine RBC Urine WBC Ur Epithelial Cells Urine Bacteria Assessment & Plan - Assessment and Plan (Free Text) Plan: Aphasia -likely from previous stroke -CT head shows hypodense region within left thalamus and left occipital lobe consistent with infarction -MRI ordered to rule out acute stroke -continue to monitor mental status <Myke Chowdary - Last Filed: 08/19/18 21:02> Meds - Medications Medications: Current Medications Amlodipine Besylate (Norvasc) 2.5 mg PO DAILY [facility] Last Admin: 08/19/18 10:24 Dose: 2.5 mg Aspirin (Ecotrin) 81 mg PO DAILY [facility] Last Admin: 08/19/18 10:24 Dose: 81 mg Atorvastatin Calcium (Lipitor) 40 mg PO DAILY [facility] Last Admin: 08/19/18 10:24 Dose: 40 mg Clopidogrel Bisulfate (Plavix) 75 mg PO DAILY [facility] Last Admin: 08/18/18 10:57 Dose: 75 mg Dextrose (Dextrose 50% Inj) 0 ml IV STAT PRN; Protocol PRN Reason: Hypoglycemia Protocol Docusate Sodium (Colace) 100 mg PO DAILY [facility] Last Admin: 08/19/18 10:24 Dose: 100 mg Famotidine (Pepcid) 20 mg IVP DAILY [facility] Last Admin: 08/19/18 10:23 Dose: 20 mg Gabapentin (Neurontin) 300 mg PO DAILY [facility]; Protocol Last Admin: 08/19/18 10:24 Dose: 300 mg Heparin Sodium (Porcine) (Heparin) 5,000 units SC Q8 [facility]; Protocol Last Admin: 08/19/18 16:19 Dose: Not Given Lactated Ringer's (Lactated Ringer's) 1,000 mls @ 75 mls/hr IV .[id number] [facility] Last Admin: 08/19/18 10:23 Dose: 75 mls/hr Dextrose (Dextrose 5% In Water 1000 Ml) 1,000 mls @ 0 mls/hr IV .Q0M PRN; Protocol PRN Reason: Hypoglycemia Protocol Insulin Human Regular (Humulin R Med) 0 units SC ACHS [facility]; Protocol Last Admin: 08/19/18 16:25 Dose: 3 unit Losartan Potassium (Cozaar) 100 mg PO DAILY [facility] Last Admin: 08/19/18 10:24 Dose: 100 mg Ondansetron HCl (Zofran Inj) 4 mg IVP Q4 PRN PRN Reason: Nausea/Vomiting Results - Vital Signs Recent Vital Signs: Last Vital Signs Temp 98.0 F 08/19/18 06:00 Pulse 74 08/19/18 10:00 Resp 18 08/19/18 06:00 BP 176/75 H 08/19/18 10:24 Pulse Ox 99 08/19/18 06:00 - Labs Result Diagrams: 08/19/18 06:30 08/19/18 06:30 Labs: Laboratory Results - last 24 hr 08/18/18 08/19/18 08/19/18 21:38 06:30 06:30 WBC 4.0 L RBC 3.76 Hgb 11.2 L Hct 35.0 L MCV 93.1 MCH 29.8 MCHC 32.0 RDW 13.3 Plt Count 212 MPV 9.7 Neut % (Auto) 54.7 Lymph % (Auto) 34.9 [place] % (Auto) 6.2 H Eos % (Auto) 3.7 Baso % (Auto) 0.5 Lymph # (Auto) 1.4 [place] # (Auto) 0.3 Eos # (Auto) 0.2 Baso # (Auto) 0.02 Absolute Neuts (auto) 2.19 Sodium 142 Potassium 3.9 Chloride 105 Carbon Dioxide 29 Anion Gap 11 BUN 8 Creatinine 0.7 Est GFR ( Amer) > 60 Est GFR (Non-Af Amer) > 60 POC Glucose (mg/dL) 181 H Random Glucose 182 H Calcium 9.1 Phosphorus 3.7 Magnesium 1.9 Total Bilirubin 0.4 AST 25 ALT 30 Alkaline Phosphatase 79 Total Protein 6.4 Albumin 3.3 Globulin 3.1 Albumin/Globulin Ratio 1.1 08/19/18 08/19/18 08/19/18 07:31 11:38 16:03 WBC RBC Hgb Hct MCV MCH MCHC RDW Plt Count MPV Neut % (Auto) Lymph % (Auto) [place] % (Auto) Eos % (Auto) Baso % (Auto) Lymph # (Auto) [place] # (Auto) Eos # (Auto) Baso # (Auto) Absolute Neuts (auto) Sodium Potassium Chloride Carbon Dioxide Anion Gap BUN Creatinine Est GFR ( Amer) Est GFR (Non-Af Amer) POC Glucose (mg/dL) 200 H 235 H 219 H Random Glucose Calcium Phosphorus Magnesium Total Bilirubin AST ALT Alkaline Phosphatase Total Protein Albumin Globulin Albumin/Globulin Ratio Attending/Attestation - Attestation I have personally seen and examined this patient.: Yes I have fully participated in the care of the patient.: Yes I have reviewed all pertinent clinical information: Yes Notes (Text): I agree with the assessment and plan. Likely chronic symptoms from previous stroke.
--- NOTE | 2018-08-17 16:51 | CP.PCM.PN ---
Subjective - Date & Time of Evaluation Date of Evaluation: 08/17/18 Time of Evaluation: 16:45 - Subjective Subjective: see NIHSS Objective - Vital Signs/Intake and Output Vital Signs (last 24 hours): Temp Pulse Resp BP Pulse Ox 97.2 F L 76 18 113/69 97 08/17/18 16:27 08/17/18 16:27 08/17/18 16:27 08/17/18 16:27 08/17/18 16:27 - Medications Medications: Current Medications Amlodipine Besylate (Norvasc) 2.5 mg PO DAILY [facility] Last Admin: 08/17/18 09:30 Dose: 2.5 mg Aspirin (Ecotrin) 81 mg PO DAILY [facility] Last Admin: 08/17/18 09:29 Dose: 81 mg Atorvastatin Calcium (Lipitor) 20 mg PO DAILY [facility] Last Admin: 08/17/18 09:29 Dose: 20 mg Clopidogrel Bisulfate (Plavix) 75 mg PO DAILY [facility] Last Admin: 08/17/18 09:31 Dose: 75 mg Dextrose (Dextrose 50% Inj) 0 ml IV STAT PRN; Protocol PRN Reason: Hypoglycemia Protocol Docusate Sodium (Colace) 100 mg PO DAILY [facility] Last Admin: 08/17/18 14:12 Dose: 100 mg Famotidine (Pepcid) 20 mg IVP DAILY [facility] Last Admin: 08/17/18 09:31 Dose: 20 mg Gabapentin (Neurontin) 300 mg PO DAILY [facility]; Protocol Last Admin: 08/17/18 09:29 Dose: 300 mg Heparin Sodium (Porcine) (Heparin) 5,000 units SC Q8 [facility]; Protocol Last Admin: 08/17/18 14:12 Dose: 5,000 units Lactated Ringer's (Lactated Ringer's) 1,000 mls @ 75 mls/hr IV .[id number] [facility] Last Admin: 08/17/18 09:43 Dose: 75 mls/hr Dextrose (Dextrose 5% In Water 1000 Ml) 1,000 mls @ 0 mls/hr IV .Q0M PRN; Protocol PRN Reason: Hypoglycemia Protocol Insulin Human Regular (Humulin R Med) 0 units SC ACHS [facility]; Protocol Last Admin: 08/17/18 16:36 Dose: Not Given Losartan Potassium (Cozaar) 100 mg PO DAILY [facility] Last Admin: 08/17/18 09:29 Dose: 100 mg Metoclopramide HCl (Reglan) 10 mg IVP Q4 [facility] Last Admin: 08/17/18 14:13 Dose: 10 mg Ondansetron HCl (Zofran Inj) 4 mg IVP Q4 PRN PRN Reason: Nausea/Vomiting - Labs Labs: 08/17/18 08:00 08/17/18 08:00 NIHSS Stroke Scale - Date/Time Evaluation Performed Date Performed: 08/17/18 Time Performed: 16:53 When Was NIHSS Performed: Baseline - How Severe is the Stoke Level of Consciousness: 0=Alert LOC to Questions: 0=Both comments correct LOC to commands: 0=Obeys both correctly Best Gaze: 0=Normal Visual: 0=No visual loss Facial: 0=Normal Motor Arm - Left: 0=No drift Motor Arm - Right: 2=Falls before 10 sec Motor Leg - Left: 0=No drift Motor Leg - Right: 2=Falls before 5 sec Limb Ataxia: 1=Present Upper or Lower Sensory: 0=Normal Best Language: 1=Mild to moderate aphasia (Per son who translates, occasionally word salad) Dysarthia: 0=Normal articulation Extinction & Inattention (Neglect): 0=Normal, no object Score: 6
--- NOTE | 2018-08-17 20:51 | CARD ---
APPROVED REPORT Date of service: 08/17/2018 EKG Measurement Heart [id number] <Conclusion> Normal sinus rhythm Poor R Progression V1-V3. Non Specific ST_T Changes.
[2018-08-18] MEDS: Lactated Ringer's 1,000 ML IV SCH ×2 (03:30→17:13)
[2018-08-18 08:22] LABS: BASO # 0.02 K/mm3 (0.0-2.0); BASO % 0.6 % (0.0-3.0); EOS # 0.1 (0.0-0.7); EOS % 3.4 % (1.5-5.0); LYMPH # 1.1 (1.2-3.4); LYMPH % 31.6 % (22.0-35.0); MEAN CELL VOLUME 93.3 fl (80.0-105.0); MEAN CORPUSCULAR HEMOGLOBIN 29.6 pg (25.0-35.0); MEAN CORPUSCULAR HGB CONC 31.8 g/dl (31.0-37.0); MEAN PLATELET VOLUME 9.7 fl (7.0-11.0); MONO # 0.2 (0.1-0.6); MONO % 6.7 % (1.0-6.0); RBC 3.71 10^6/uL (3.5-6.1); RED CELL DISTRIBUTION WIDTH 13.6 % (11.5-14.5); WHITE BLOOD COUNT 3.6 10^3/uL (4.5-11.0)
[2018-08-18] MEDS: Insulin Reg-MEDIUM-Coverage SC SCH ×4 (08:23→21:43)
[2018-08-18 08:32] LABS: ALBUMIN 3.1 g/dL (3.0-4.8); ALT/SGPT 31 U/L (7-56); AST/SGOT 31 U/L (14-36); BLOOD UREA NITROGEN 8 mg/dL (7-21); CALCIUM 9.2 mg/dL (8.4-10.5); GFR NON-AFRICAN AMERICAN > 60
[2018-08-18 08:45] LABS: HDL CHOLESTEROL 29 mg/dL (29-60)
[2018-08-18 08:56] LABS: LDL CHOLESTEROL 68 mg/dL (0-129)
--- NOTE | 2018-08-18 10:40 | PN ---
DATE: 08/18/2018 SUBJECTIVE: I examined Ms. Buck this morning. She is a 68-year-old female mainly with complaints of nausea, vomiting, and abdominal pain prior to admission. At bedside this morning, the patient appears to be improved relative to exam yesterday. There are no complaints of nausea or vomiting. Abdominal pain has resolved. She is passing urine. She tolerated the liquid diet with no problems. She requested increase in diet consistency through small portions of soft. The patient is speaking in perfect Portuguese today. Yesterday, she had difficulty. Some degree of aphasia noted. Radiology evaluation of neck MRA, head MRI, brain MRI, head CT, etc. I reviewed this case with nurses on the unit this morning. PHYSICAL EXAMINATION: VITAL SIGNS: I reviewed this patient's vital signs. HEENT: Noncontributory. LUNGS: Decreased breath sounds at the bases. HEART: Irregular rhythm. ABDOMEN: Soft, protuberant. No tenderness elicited in any quadrant. LABORATORY DATA: H and H slightly down from yesterday. Most recent H and H 10.7 and 32. I reviewed the patient's last chemistry results. Note that the head CT did not find any new intracranial hemorrhages. There was diffuse atrophy. No mass effect. She has got a white matter hypodensity. No hydrocephalus. MRA studies and MRI are still pending interpretation. ASSESSMENT AND PLAN: This is a 68-year-old female admitted for complaints of nausea and vomiting prior to admission which include also abdominal pain. Symptoms appeared to be resolved, she is unaware of her diet, also she is speaking better today relative to yesterday. The patient now would maintain current orders except for dietary advance. Suggest increase the diet to small portions of soft this morning. Not much to offer in this case. The house staff will follow up later on regarding neurological issues later on this morning. I will sign off today. Ricky Alcantar DO, PhD [facility]
--- NOTE | 2018-08-18 12:26 | MRI ---
Date of service: 08/17/2018 PROCEDURE: MRI BRAIN WITHOUT CONTRAST HISTORY: stroke COMPARISON: None available. TECHNIQUE: Multiplanar, multisequence MR images of the brain were obtained without intravenous contrast enhancement. FINDINGS: HEMORRHAGE: There is a chronic appearing hemorrhagic infarct in the left occipital lobe. DWI: No evidence of an acute or early subacute infarction. BRAIN PARENCHYMA: No mass effect or edema. There is a chronic appearing hemorrhagic infarct in the left occipital lobe. There is also a chronic appearing infarct in the left thalamus VENTRICLES: Unremarkable. No hydrocephalus. CRANIUM: Unremarkable. ORBITS: Grossly unremarkable. PARANASAL SINUSES/MASTOIDS: Clear VASCULAR SYSTEM: Skull base flow voids intact. OTHER FINDINGS: The report concurs with the preliminary [facility] report IMPRESSION: There is a chronic appearing hemorrhagic infarct in the left occipital lobe. There is also a chronic appearing infarct in the left thalamus
--- NOTE | 2018-08-18 12:28 | MRI ---
Date of service: 08/17/2018 PROCEDURE: MR Angiography of the neck without contrast HISTORY: stroke COMPARISON: None available. TECHNIQUE: 3D [id number] angiography of the neck was performed. Rotating maximum intensity projection images of the cervical carotid and vertebral arteries were generated. The origins of the common carotid arteries were not visualized, which is a limitation inherent to the non-contrast time of flight technique. FINDINGS: RIGHT CAROTID ARTERIES: Common Carotid Artery: Normal. Carotid Bifurcation: Normal. Internal Carotid Artery:Normal. External Carotid Artery (proximal branches): Normal. LEFT CAROTID ARTERIES: Common Carotid Artery: Normal. Carotid Bifurcation: Normal. Internal Carotid Artery:Normal. External Carotid Artery (proximal branches): Normal. VERTEBRAL ARTERIES: Right Vertebral Artery: Normal. Left Vertebral Artery: Normal. OTHER FINDINGS: None. IMPRESSION: Normal MR Angiography of the neck.
--- NOTE | 2018-08-18 12:29 | MRI ---
Date of service: 08/17/2018 PROCEDURE: Magnetic Resonance Angiography Brain HISTORY: stroke COMPARISON: None available. TECHNIQUE: 3D time of flight MR angiography of the intracranial arteries was performed. Rotating maximum intensity projection images were generated. FINDINGS: INTERNAL CAROTID ARTERIES: Unremarkable. The skull base, petrous, cavernous and supraclinoid segments are bilaterally widely patient. ANTERIOR CEREBRAL ARTERIES: Unremarkable. A1 and A2 segments are widely patent. Smaller distal branches unremarkable, as visualized. MIDDLE CEREBRAL ARTERIES: Unremarkable. M1 and M2 segments are widely patent. Perisylvian branches grossly symmetric. POSTERIOR CIRCULATION: Basilar Artery: Unremarkable. Distal Vertebral Arteries: Unremarkable. Posterior Cerebral Arteries: Unremarkable. Posterior Inferior Cerebellar Arteries: Unremarkable. ANEURYSM/ VASCULAR MALFORMATIONS: None. OTHER FINDINGS: The report concurs with the preliminary [facility] report IMPRESSION: Unremarkable MR angiography of the brain.
--- NOTE | 2018-08-18 15:11 | CP.PCM.PN ---
<Anirudh Mendez - Last Filed: 08/18/18 15:08> Subjective - Date & Time of Evaluation Date of Evaluation: 08/18/18 Time of Evaluation: 08:00 - Subjective Subjective: Anirudh Mendez PGY1 Medicine Progress Note for Dr. Hedrick Patient seen at bedside this morning. She is AAOx3. She is alert, awake, and oriented. She is more responsive than on admission. Denies cp, sob, n/v/d, weakness, pain. No adverse overnight events. A full 12 point ROS was conducted and unremarkable except as stated above. Objective - Vital Signs/Intake and Output Vital Signs (last 24 hours): Temp Pulse Resp BP Pulse Ox 98.2 F 84 20 143/73 99 08/18/18 06:00 08/18/18 14:00 08/18/18 06:00 08/18/18 10:58 08/18/18 06:00 Intake and Output: 08/18/18 08/18/18 06:59 18:59 Intake Total 840 Output Total 2000 Balance -1160 - Medications Medications: Current Medications Amlodipine Besylate (Norvasc) 2.5 mg PO DAILY [facility] Last Admin: 08/18/18 10:58 Dose: 2.5 mg Aspirin (Ecotrin) 81 mg PO DAILY [facility] Last Admin: 08/18/18 11:01 Dose: 81 mg Atorvastatin Calcium (Lipitor) 40 mg PO DAILY [facility] Clopidogrel Bisulfate (Plavix) 75 mg PO DAILY [facility] Last Admin: 08/18/18 10:57 Dose: 75 mg Dextrose (Dextrose 50% Inj) 0 ml IV STAT PRN; Protocol PRN Reason: Hypoglycemia Protocol Docusate Sodium (Colace) 100 mg PO DAILY [facility] Last Admin: 08/18/18 10:57 Dose: 100 mg Famotidine (Pepcid) 20 mg IVP DAILY [facility] Last Admin: 08/18/18 10:57 Dose: 20 mg Gabapentin (Neurontin) 300 mg PO DAILY [facility]; Protocol Last Admin: 08/18/18 10:58 Dose: 300 mg Heparin Sodium (Porcine) (Heparin) 5,000 units SC Q8 [facility]; Protocol Last Admin: 08/18/18 14:56 Dose: 5,000 units Lactated Ringer's (Lactated Ringer's) 1,000 mls @ 75 mls/hr IV .[id number] [facility] Last Admin: 08/18/18 03:30 Dose: 75 mls/hr Dextrose (Dextrose 5% In Water 1000 Ml) 1,000 mls @ 0 mls/hr IV .Q0M PRN; Protocol PRN Reason: Hypoglycemia Protocol Insulin Human Regular (Humulin R Med) 0 units SC ACHS [facility]; Protocol Last Admin: 08/18/18 12:44 Dose: 1 unit Losartan Potassium (Cozaar) 100 mg PO DAILY [facility] Last Admin: 08/18/18 10:58 Dose: 100 mg Ondansetron HCl (Zofran Inj) 4 mg IVP Q4 PRN PRN Reason: Nausea/Vomiting - Labs Labs: 08/18/18 07:00 08/18/18 07:00 - Constitutional Appears: In Acute Distress - Head Exam Head Exam: ATRAUMATIC, NORMAL INSPECTION - Eye Exam Eye Exam: EOMI, Normal appearance. absent: Scleral icterus Pupil Exam: NORMAL ACCOMODATION, PERRL - ENT Exam ENT Exam: Mucous Membranes Moist - Neck Exam Neck exam: Negative for: Lymphadenopathy, Tenderness - Respiratory Exam Respiratory Exam: Clear to Auscultation Bilateral. absent: Rales, Wheezes, Stridor - Cardiovascular Exam Cardiovascular Exam: RRR, +S1, +S2 - GI/Abdominal Exam GI & Abdominal Exam: Normal Bowel Sounds, Soft. absent: Firm, Guarding, Rebound, Tenderness - Extremities Exam Extremities exam: Negative for: pedal edema, tenderness - Neurological Exam Neurological exam: Alert, CN II-XII Intact, Oriented x3. No facial droop or slurring of speech. Additional comments: Motor strength is 5/5. Sensation to all distal extremities intact. - Skin Skin Exam: Diaphoretic, Pallor, Warm Assessment and Plan - Assessment and Plan (Free Text) Assessment: 68F with PMHx of DM, HTN, CVA admitted for intractable nausea/vomiting and CVA - acute vs chronic. Plan: Intractable Vomiting - CT A/P: gallbladder distention. No gallstones. Distended urinary bladder. Biateral adrenal gland nodular hypertrophy. 8 mm left adrenal gland nodule. - c/w Zofran - c/w colace - c/w LRs @ 75 - Diet advanced to dysphagia diet as per GI - GI (Dr Lebron) consulted, recs appreciated. 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 Requires MRI to determine whether acute or chronic. - Brain MRI: chronic appearing hemorrhagic infarct in the left occipital lobe. There is also a chronic appearing infarct in the left thalamus - Head MRA: Unremarkable MR angiography of the brain. - Neck MRA: Normal MR Angiography of the neck. - c/w fall risk - Neurology on consult (Dr. Chowdary). Recs appreciated. Asymptomatic UTI - afebrile, no leukocytosis - no antibiotics at this time - f/u Urine Culture results - UA pos Leuk est and WBCs - blood cx negative x2 (prelim) DM2 - ISS medium - A1c 8.5 HTN - c/w Norvasc 2.5 daily - c/w Losartan 100mg HLD - c/w lipitor 40mg PO daily PPx - Pepcid 20 ivp - Dysphagia diet - Heparin 5000u q8 Dispo: Monitor patient on remote telemetry. Patient needs Acute Rehab as per PT recommendations. Case was discussed and reviewed with Attending Physician, Dr. Hedrick <Shaunna Hedrick - Last Filed: 08/18/18 16:05> Objective - Vital Signs/Intake and Output Vital Signs (last 24 hours): Temp Pulse Resp BP Pulse Ox 98.2 F 84 20 143/73 99 08/18/18 06:00 08/18/18 14:00 08/18/18 06:00 08/18/18 10:58 08/18/18 06:00 Intake and Output: 08/18/18 08/18/18 06:59 18:59 Intake Total 840 Output Total 2000 Balance -1160 - Medications Medications: Current Medications Amlodipine Besylate (Norvasc) 2.5 mg PO DAILY [facility] Last Admin: 08/18/18 10:58 Dose: 2.5 mg Aspirin (Ecotrin) 81 mg PO DAILY [facility] Last Admin: 08/18/18 11:01 Dose: 81 mg Atorvastatin Calcium (Lipitor) 40 mg PO DAILY [facility] Clopidogrel Bisulfate (Plavix) 75 mg PO DAILY [facility] Last Admin: 08/18/18 10:57 Dose: 75 mg Dextrose (Dextrose 50% Inj) 0 ml IV STAT PRN; Protocol PRN Reason: Hypoglycemia Protocol Docusate Sodium (Colace) 100 mg PO DAILY [facility] Last Admin: 08/18/18 10:57 Dose: 100 mg Famotidine (Pepcid) 20 mg IVP DAILY [facility] Last Admin: 08/18/18 10:57 Dose: 20 mg Gabapentin (Neurontin) 300 mg PO DAILY [facility]; Protocol Last Admin: 08/18/18 10:58 Dose: 300 mg Heparin Sodium (Porcine) (Heparin) 5,000 units SC Q8 [facility]; Protocol Last Admin: 08/18/18 14:56 Dose: 5,000 units Lactated Ringer's (Lactated Ringer's) 1,000 mls @ 75 mls/hr IV .[id number] [facility] Last Admin: 08/18/18 03:30 Dose: 75 mls/hr Dextrose (Dextrose 5% In Water 1000 Ml) 1,000 mls @ 0 mls/hr IV .Q0M PRN; Protocol PRN Reason: Hypoglycemia Protocol Insulin Human Regular (Humulin R Med) 0 units SC ACHS [facility]; Protocol Last Admin: 08/18/18 12:44 Dose: 1 unit Losartan Potassium (Cozaar) 100 mg PO DAILY [facility] Last Admin: 08/18/18 10:58 Dose: 100 mg Ondansetron HCl (Zofran Inj) 4 mg IVP Q4 PRN PRN Reason: Nausea/Vomiting - Labs Labs: 08/18/18 07:00 08/18/18 07:00 Attending/Attestation - Attestation I have personally seen and examined this patient.: Yes I have fully participated in the care of the patient.: Yes I have reviewed all pertinent clinical information, including history, physical exam and plan: Yes Notes (Text): 08/18/18 15:53 68 year old female with past medical history of CVA, hypertension and diabetes who presented with intractable nausea/vomiting with abdominal pain (resolved). CT abd/pelvis showed gallbladder distention without calcified gallstones and bilateral adrenal gland nodular hypertrophy. Recommended outpatient follow up. GI symptoms resolved. GI is following. Patient is tolerating diet. CT head showed hypodense region within the left thalamus and left occipital lobe consistent with infarction. MRI brain showed chronic appearing hemorrhagic infarct in the left occipital lobe and chronic apprearing infarct in the left thalamus. MRA head/neck were negative. Patient is on aspirin, plavix and statin. Will follow up with neurology recommendations. PT is following also and recommended acute rehab. Will follow up with CMx/Sw on Monday. UA noted. However is asymptomatic. Monitor off antibiotics. Shaunna Hedrick MD Hospitalist.
--- NOTE | 2018-08-18 23:17 | CP.PCM.PN ---
Subjective - Date & Time of Evaluation Date of Evaluation: 08/18/18 Time of Evaluation: 23:16 - Subjective Subjective: # 24 angiocath was inserted in left forearm. Has no complaints. Stable. Objective - Vital Signs/Intake and Output Vital Signs (last 24 hours): Temp Pulse Resp BP Pulse Ox 98.6 F 81 20 158/82 H 99 08/18/18 16:30 08/18/18 18:00 08/18/18 16:30 08/18/18 17:06 08/18/18 16:30 Intake and Output: 08/18/18 08/19/18 18:59 06:59 Intake Total 825 Balance 825 - Medications Medications: Current Medications Amlodipine Besylate (Norvasc) 2.5 mg PO DAILY [facility] Last Admin: 08/18/18 10:58 Dose: 2.5 mg Aspirin (Ecotrin) 81 mg PO DAILY [facility] Last Admin: 08/18/18 11:01 Dose: 81 mg Atorvastatin Calcium (Lipitor) 40 mg PO DAILY [facility] Clopidogrel Bisulfate (Plavix) 75 mg PO DAILY [facility] Last Admin: 08/18/18 10:57 Dose: 75 mg Dextrose (Dextrose 50% Inj) 0 ml IV STAT PRN; Protocol PRN Reason: Hypoglycemia Protocol Docusate Sodium (Colace) 100 mg PO DAILY [facility] Last Admin: 08/18/18 10:57 Dose: 100 mg Famotidine (Pepcid) 20 mg IVP DAILY [facility] Last Admin: 08/18/18 10:57 Dose: 20 mg Gabapentin (Neurontin) 300 mg PO DAILY [facility]; Protocol Last Admin: 08/18/18 10:58 Dose: 300 mg Heparin Sodium (Porcine) (Heparin) 5,000 units SC Q8 [facility]; Protocol Last Admin: 08/18/18 21:43 Dose: Not Given Lactated Ringer's (Lactated Ringer's) 1,000 mls @ 75 mls/hr IV .[id number] [facility] Last Admin: 08/18/18 17:13 Dose: 75 mls/hr Dextrose (Dextrose 5% In Water 1000 Ml) 1,000 mls @ 0 mls/hr IV .Q0M PRN; Protocol PRN Reason: Hypoglycemia Protocol Insulin Human Regular (Humulin R Med) 0 units SC ACHS [facility]; Protocol Last Admin: 08/18/18 21:43 Dose: Not Given Losartan Potassium (Cozaar) 100 mg PO DAILY [facility] Last Admin: 08/18/18 10:58 Dose: 100 mg Ondansetron HCl (Zofran Inj) 4 mg IVP Q4 PRN PRN Reason: Nausea/Vomiting - Labs Labs: 08/18/18 07:00 08/18/18 07:00
[2018-08-19 07:29] LABS: BASO # 0.02 K/mm3 (0.0-2.0); BASO % 0.5 % (0.0-3.0); EOS # 0.2 (0.0-0.7); EOS % 3.7 % (1.5-5.0); HEMOGLOBIN 11.2 g/dL (12.0-16.0); LYMPH # 1.4 (1.2-3.4); LYMPH % 34.9 % (22.0-35.0); MEAN CELL VOLUME 93.1 fl (80.0-105.0); MEAN CORPUSCULAR HEMOGLOBIN 29.8 pg (25.0-35.0); MEAN PLATELET VOLUME 9.7 fl (7.0-11.0); MONO # 0.3 (0.1-0.6); MONO % 6.2 % (1.0-6.0); RBC 3.76 10^6/uL (3.5-6.1); RED CELL DISTRIBUTION WIDTH 13.3 % (11.5-14.5)
[2018-08-19 07:59] LABS: ALB/GLOB RATIO 1.1 (1.1-1.8); ALBUMIN 3.3 g/dL (3.0-4.8); ALT/SGPT 30 U/L (7-56); AST/SGOT 25 U/L (14-36); BLOOD UREA NITROGEN 8 mg/dL (7-21); CALCIUM 9.1 mg/dL (8.4-10.5); GFR NON-AFRICAN AMERICAN > 60
[2018-08-19] MEDS: Insulin Reg-MEDIUM-Coverage SC SCH ×3 (08:04→16:25)
[2018-08-19] MEDS: Lactated Ringer's 1,000 ML IV SCH (10:23)
--- NOTE | 2018-08-19 12:15 | CP.PCM.PN ---
<Anirudh Mendez - Last Filed: 08/19/18 12:12> Subjective - Date & Time of Evaluation Date of Evaluation: 08/19/18 Time of Evaluation: 08:00 - Subjective Subjective: Anirudh Mendez, PGY1 Medicine Progress Note for Dr. Hedrick Patient seen at bedside this morning. She is AAOx3. She is alert, awake, and oriented. However, patient is confused at times. Yesterday, she said she was on aspirin and plavix and today she denies it. She also has some difficulty remembering her son's name. Medical team will try to contact family for clarification on whether patient is on these medications. Denies cp, sob, n/v/d, weakness, pain. No adverse overnight events. Son (Chris) #[phone]. A full 12 point ROS was conducted and unremarkable except as stated above. Objective - Vital Signs/Intake and Output Vital Signs (last 24 hours): Temp Pulse Resp BP Pulse Ox 98.0 F 73 18 176/75 H 99 08/19/18 06:00 08/19/18 06:00 08/19/18 06:00 08/19/18 10:24 08/19/18 06:00 Intake and Output: 08/19/18 08/19/18 06:59 18:59 Intake Total 180 Output Total 600 Balance -420 - Medications Medications: Current Medications Amlodipine Besylate (Norvasc) 2.5 mg PO DAILY [facility] Last Admin: 08/19/18 10:24 Dose: 2.5 mg Aspirin (Ecotrin) 81 mg PO DAILY [facility] Last Admin: 08/19/18 10:24 Dose: 81 mg Atorvastatin Calcium (Lipitor) 40 mg PO DAILY [facility] Last Admin: 08/19/18 10:24 Dose: 40 mg Clopidogrel Bisulfate (Plavix) 75 mg PO DAILY [facility] Last Admin: 08/18/18 10:57 Dose: 75 mg Dextrose (Dextrose 50% Inj) 0 ml IV STAT PRN; Protocol PRN Reason: Hypoglycemia Protocol Docusate Sodium (Colace) 100 mg PO DAILY [facility] Last Admin: 08/19/18 10:24 Dose: 100 mg Famotidine (Pepcid) 20 mg IVP DAILY [facility] Last Admin: 08/19/18 10:23 Dose: 20 mg Gabapentin (Neurontin) 300 mg PO DAILY [facility]; Protocol Last Admin: 08/19/18 10:24 Dose: 300 mg Heparin Sodium (Porcine) (Heparin) 5,000 units SC Q8 [facility]; Protocol Last Admin: 08/19/18 05:37 Dose: Not Given Lactated Ringer's (Lactated Ringer's) 1,000 mls @ 75 mls/hr IV .[id number] [facility] Last Admin: 08/19/18 10:23 Dose: 75 mls/hr Dextrose (Dextrose 5% In Water 1000 Ml) 1,000 mls @ 0 mls/hr IV .Q0M PRN; Protocol PRN Reason: Hypoglycemia Protocol Insulin Human Regular (Humulin R Med) 0 units SC ACHS [facility]; Protocol Last Admin: 08/19/18 11:48 Dose: 3 unit Losartan Potassium (Cozaar) 100 mg PO DAILY [facility] Last Admin: 08/19/18 10:24 Dose: 100 mg Ondansetron HCl (Zofran Inj) 4 mg IVP Q4 PRN PRN Reason: Nausea/Vomiting - Labs Labs: 08/19/18 06:30 08/19/18 06:30 - Constitutional Appears: In Acute Distress - Head Exam Head Exam: ATRAUMATIC, NORMAL INSPECTION - Eye Exam Eye Exam: EOMI, Normal appearance. absent: Scleral icterus Pupil Exam: NORMAL ACCOMODATION, PERRL - ENT Exam ENT Exam: Mucous Membranes Moist - Neck Exam Neck exam: Negative for: Lymphadenopathy, Tenderness - Respiratory Exam Respiratory Exam: Clear to Auscultation Bilateral. absent: Rales, Wheezes, Stridor - Cardiovascular Exam Cardiovascular Exam: RRR, +S1, +S2 - GI/Abdominal Exam GI & Abdominal Exam: Normal Bowel Sounds, Soft. absent: Firm, Guarding, Rebound, Tenderness - Extremities Exam Extremities exam: Negative for: pedal edema, tenderness - Neurological Exam Neurological exam: Alert, CN II-XII Intact, Oriented x3. No facial droop or slurring of speech. Additional comments: Motor strength is 5/5. Sensation to all distal extremities intact. - Skin Skin Exam: Diaphoretic, Pallor, Warm Assessment and Plan - Assessment and Plan (Free Text) Assessment: Patient is a 68F with PMHx of DM, HTN, CVA admitted for intractable nausea/vomiting and CVA - acute vs chronic. Plan: CVA - Chronic Hemorrhagic Infarction L-Thalamus and L-Occipital Lobe - Will need to contact family (son/daughter) about why patient is actually on aspirin and plavix. Patient denies [place] or stent placement however she is not the best historian. At this time, plavix will be held and aspirin may stay on board as per neuro. - c/w aspirin 81mg daily - c/w lipitor 40mg PO daily - PT, OT, ST; PT recommends acute rehab at this time - Brain MRI: chronic appearing hemorrhagic infarct in the left occipital lobe. There is also a chronic appearing infarct in the left thalamus - Head MRA: Unremarkable MR angiography of the brain. - Neck MRA: Normal MR Angiography of the neck. - Head CT: Hypodense region within the left thalamus and left occipital lobe consistent with infarction. - c/w fall risk - Neurology on consult (Dr. Chowdary). Recs appreciated. Intractable Vomiting - resolved - GI signed off case - CT A/P: gallbladder distention. No gallstones. Distended urinary bladder. Bilateral adrenal gland nodular hypertrophy. 8 mm left adrenal gland nodule. - c/w Zofran - c/w colace - c/w LRs @ 75 - Diet advanced to dysphagia diet as per GI - GI (Dr Lebron) consulted, recs appreciated. - Pepcid 20 ivp daily Asymptomatic UTI - afebrile, no leukocytosis - no antibiotics at this time - UCx: multiple species; likely contaminated - UA pos Leuk est and WBCs - blood cx negative x2 (prelim) DM2 - ISS medium - A1c 8.5 HTN - c/w Norvasc 2.5 daily - c/w Losartan 100mg HLD - c/w lipitor 40mg PO daily PPx - Pepcid 20 ivp - Dysphagia diet - Heparin 5000u q8 Dispo: Monitor patient on remote telemetry. Patient needs Acute Rehab as per PT recommendations. Pending discussion with family for clarification of medication and further cardiac history/meds. Case was discussed and reviewed with Attending Physician, Dr. Hedrick <Shaunna Hedrick - Last Filed: 08/19/18 12:43> Objective - Vital Signs/Intake and Output Vital Signs (last 24 hours): Temp Pulse Resp BP Pulse Ox 98.0 F 73 18 176/75 H 99 08/19/18 06:00 08/19/18 06:00 08/19/18 06:00 08/19/18 10:24 08/19/18 06:00 Intake and Output: 08/19/18 08/19/18 06:59 18:59 Intake Total 180 Output Total 600 Balance -420 - Medications Medications: Current Medications Amlodipine Besylate (Norvasc) 2.5 mg PO DAILY [facility] Last Admin: 08/19/18 10:24 Dose: 2.5 mg Aspirin (Ecotrin) 81 mg PO DAILY [facility] Last Admin: 08/19/18 10:24 Dose: 81 mg Atorvastatin Calcium (Lipitor) 40 mg PO DAILY [facility] Last Admin: 08/19/18 10:24 Dose: 40 mg Clopidogrel Bisulfate (Plavix) 75 mg PO DAILY [facility] Last Admin: 08/18/18 10:57 Dose: 75 mg Dextrose (Dextrose 50% Inj) 0 ml IV STAT PRN; Protocol PRN Reason: Hypoglycemia Protocol Docusate Sodium (Colace) 100 mg PO DAILY [facility] Last Admin: 08/19/18 10:24 Dose: 100 mg Famotidine (Pepcid) 20 mg IVP DAILY [facility] Last Admin: 08/19/18 10:23 Dose: 20 mg Gabapentin (Neurontin) 300 mg PO DAILY [facility]; Protocol Last Admin: 08/19/18 10:24 Dose: 300 mg Heparin Sodium (Porcine) (Heparin) 5,000 units SC Q8 [facility]; Protocol Last Admin: 08/19/18 05:37 Dose: Not Given Lactated Ringer's (Lactated Ringer's) 1,000 mls @ 75 mls/hr IV .[id number] [facility] Last Admin: 08/19/18 10:23 Dose: 75 mls/hr Dextrose (Dextrose 5% In Water 1000 Ml) 1,000 mls @ 0 mls/hr IV .Q0M PRN; Protocol PRN Reason: Hypoglycemia Protocol Insulin Human Regular (Humulin R Med) 0 units SC ACHS [facility]; Protocol Last Admin: 08/19/18 11:48 Dose: 3 unit Losartan Potassium (Cozaar) 100 mg PO DAILY [facility] Last Admin: 08/19/18 10:24 Dose: 100 mg Ondansetron HCl (Zofran Inj) 4 mg IVP Q4 PRN PRN Reason: Nausea/Vomiting - Labs Labs: 08/19/18 06:30 08/19/18 06:30 Attending/Attestation - Attestation I have personally seen and examined this patient.: Yes I have fully participated in the care of the patient.: Yes I have reviewed all pertinent clinical information, including history, physical exam and plan: Yes Notes (Text): 08/19/18 12:41 68 year old female with past medical history of CVA, hypertension and diabetes who presented with intractable nausea/vomiting with abdominal pain (resolved). CT abd/pelvis showed gallbladder distention without calcified gallstones and bilateral adrenal gland nodular hypertrophy. Recommended outpatient follow up. GI symptoms resolved. Patient is tolerating diet. CT head showed hypodense region within the left thalamus and left occipital lobe consistent with infarction. MRI brain showed chronic appearing hemorrhagic infarct in the left occipital lobe and chronic apprearing infarct in the left thalamus. MRA head/neck were negative. Patient was on aspirin, plavix and statin. Unclear why patient was on plavix at home; will need to verify with family. Can hold plavix as per neurology if no recent history of CAD or stents. Will clarify with patient's family. PT is following also and recommended acute rehab. Will follow up with CMx/Sw tomorrow. UA noted. UCx contaminated. Patient is asymptomatic. Monitor off antibiotics. Shaunna Hedrick MD Hospitalist.
[2018-08-20] MEDS: Lactated Ringer's 1,000 ML IV SCH (00:33)
[2018-08-20] MEDS: Insulin Reg-MEDIUM-Coverage SC SCH ×5 (00:33→23:04)
[2018-08-20 06:37] LABS: BASO # 0.02 K/mm3 (0.0-2.0); BASO % 0.5 % (0.0-3.0); EOS # 0.2 (0.0-0.7); EOS % 5.3 % (1.5-5.0); HEMOGLOBIN 11.5 g/dL (12.0-16.0); LYMPH # 1.4 (1.2-3.4); LYMPH % 32.9 % (22.0-35.0); MEAN CELL VOLUME 93.3 fl (80.0-105.0); MEAN CORPUSCULAR HEMOGLOBIN 29.7 pg (25.0-35.0); MEAN CORPUSCULAR HGB CONC 31.9 g/dl (31.0-37.0); MEAN PLATELET VOLUME 9.7 fl (7.0-11.0); MONO # 0.3 (0.1-0.6); MONO % 8.2 % (1.0-6.0); RBC 3.87 10^6/uL (3.5-6.1); RED CELL DISTRIBUTION WIDTH 13.3 % (11.5-14.5); WHITE BLOOD COUNT 4.1 10^3/uL (4.5-11.0)
[2018-08-20 06:49] LABS: ALB/GLOB RATIO 1.2 (1.1-1.8); ALBUMIN 3.5 g/dL (3.0-4.8); ALT/SGPT 37 U/L (7-56); AST/SGOT 27 U/L (14-36); BLOOD UREA NITROGEN 10 mg/dL (7-21); CALCIUM 9.3 mg/dL (8.4-10.5); GFR NON-AFRICAN AMERICAN > 60
--- NOTE | 2018-08-20 14:29 | CP.PCM.PN ---
<Anirudh Mendez - Last Filed: 08/20/18 14:12> Subjective - Date & Time of Evaluation Date of Evaluation: 08/20/18 Time of Evaluation: 08:00 - Subjective Subjective: Anirudh Mendez PGY1 Medicine Progress Note for Dr. Saleh Patient seen at bedside this morning. She is alert, awake, and oriented x3. Occasionally, patient has some difficulty expressing her words. Denies cp, sob, n/v/d, weakness, pain. No adverse overnight events. A full 12 point ROS was conducted and unremarkable except as stated above. Objective - Vital Signs/Intake and Output Vital Signs (last 24 hours): Temp Pulse Resp BP Pulse Ox 98 F 69 20 167/79 H 95 08/20/18 08:14 08/20/18 08:14 08/20/18 08:14 08/20/18 08:14 08/20/18 08:14 Intake and Output: 08/20/18 08/20/18 06:59 18:59 Intake Total 180 Output Total 300 Balance -120 - Medications Medications: Current Medications Amlodipine Besylate (Norvasc) 5 mg PO DAILY [facility] Aspirin (Ecotrin) 81 mg PO DAILY [facility] Last Admin: 08/19/18 10:24 Dose: 81 mg Atorvastatin Calcium (Lipitor) 40 mg PO DAILY [facility] Last Admin: 08/19/18 10:24 Dose: 40 mg Clopidogrel Bisulfate (Plavix) 75 mg PO DAILY [facility] Last Admin: 08/18/18 10:57 Dose: 75 mg Dextrose (Dextrose 50% Inj) 0 ml IV STAT PRN; Protocol PRN Reason: Hypoglycemia Protocol Docusate Sodium (Colace) 100 mg PO DAILY [facility] Last Admin: 08/19/18 10:24 Dose: 100 mg Famotidine (Pepcid) 20 mg PO DAILY [facility] Gabapentin (Neurontin) 300 mg PO DAILY [facility]; Protocol Last Admin: 08/19/18 10:24 Dose: 300 mg Heparin Sodium (Porcine) (Heparin) 5,000 units SC Q8 [facility]; Protocol Last Admin: 08/20/18 14:01 Dose: Not Given Dextrose (Dextrose 5% In Water 1000 Ml) 1,000 mls @ 0 mls/hr IV .Q0M PRN; Protocol PRN Reason: Hypoglycemia Protocol Insulin Human Regular (Humulin R Med) 0 units SC ACHS [facility]; Protocol Last Admin: 08/20/18 12:50 Dose: 5 unit Losartan Potassium (Cozaar) 100 mg PO DAILY [facility] Last Admin: 08/19/18 10:24 Dose: 100 mg Metformin HCl (Glucophage) 500 mg PO BID [facility] Ondansetron HCl (Zofran Inj) 4 mg IVP Q4 PRN PRN Reason: Nausea/Vomiting - Labs Labs: 08/20/18 05:30 08/20/18 05:30 - Constitutional Appears: In Acute Distress - Head Exam Head Exam: ATRAUMATIC, NORMAL INSPECTION - Eye Exam Eye Exam: EOMI, Normal appearance. absent: Scleral icterus Pupil Exam: NORMAL ACCOMODATION, PERRL - ENT Exam ENT Exam: Mucous Membranes Moist - Neck Exam Neck exam: Negative for: Lymphadenopathy, Tenderness - Respiratory Exam Respiratory Exam: Clear to Auscultation Bilateral. absent: Rales, Wheezes, Stridor - Cardiovascular Exam Cardiovascular Exam: RRR, +S1, +S2 - GI/Abdominal Exam GI & Abdominal Exam: Normal Bowel Sounds, Soft. absent: Firm, Guarding, Rebound, Tenderness - Extremities Exam Extremities exam: Negative for: pedal edema, tenderness - Neurological Exam Neurological exam: Alert, CN II-XII Intact, Oriented x3. No facial droop or slur ring of speech. Additional comments: Motor strength is 5/5. Sensation to all distal extremities intact. Assessment and Plan - Assessment and Plan (Free Text) Assessment: Patient is a 68F with PMHx of DM, HTN, CVA admitted for intractable nausea/vomiting and CVA. Patient's vomiting resolved during admission. She was found to have a chronic hemorrhagic stroke on MRI. Neurology is following the case. Plan: CVA - Chronic Hemorrhagic Infarction L-Thalamus and L-Occipital Lobe - Hold home med plavix at this time; c/w aspirin - neuro recs - f/u echo - c/w aspirin 81mg daily - c/w lipitor 40mg PO daily - PT, OT, ST; PT recommends acute rehab - Brain MRI: chronic appearing hemorrhagic infarct in the left occipital lobe. There is also a chronic appearing infarct in the left thalamus - Head MRA: Unremarkable MR angiography of the brain. - Neck MRA: Normal MR Angiography of the neck. - Head CT: Hypodense region within the left thalamus and left occipital lobe consistent with infarction. - Neurology on consult (Dr. Korya). Recs appreciated. Asymptomatic UTI - Curbsided nurse, lab called that patient's blood cx was +gram variable bacilli - f/u official results, consider contamination - afebrile, no leukocytosis - no antibiotics at this time - UCx: multiple species; likely contaminated - UA pos Leuk est and WBCs Intractable Vomiting - resolved - GI (Dr. Alcantar) signed off case - CT A/P: gallbladder distention. No gallstones. Distended urinary bladder. Bilateral adrenal gland nodular hypertrophy. 8 mm left adrenal gland nodule. - c/w Zofran, colace - Discontinued IVF - adjusted to dysphagia diet - carb consistent given elevated blood sugars DM2 - Blood sugars elevated; adjusted meds - Added metformin 500mg BID for hyperglycemia - ISS medium - A1c 8.5 HTN - Patient blood pressure elevated; adjusted meds - increased to Norvasc 5mg daily - c/w Losartan 100mg HLD - c/w lipitor 40mg PO daily PPx - Pepcid 20 ivp - Dysphagia diet - carb consistent - Heparin 5000u q8 Dispo: Monitor patient on remote telemetry. Pending official blood cx results. Case was discussed and reviewed with Attending Physician, Dr. Saleh. <Claudia Saleh - Last Filed: 08/22/18 13:34> Objective - Vital Signs/Intake and Output Vital Signs (last 24 hours): Temp Pulse Resp BP Pulse Ox 98.1 F 68 17 136/73 100 08/21/18 08:24 08/21/18 09:30 08/21/18 08:24 08/21/18 09:30 08/21/18 08:24 - Labs Labs: 08/21/18 07:00 08/21/18 07:00 Attending/Attestation - Attestation I have personally seen and examined this patient.: Yes I have fully participated in the care of the patient.: Yes I have reviewed all pertinent clinical information, including history, physical exam and plan: Yes Notes (Text): 08/22/18 13:33 Medical record note made by the resident after discussion with my direction and input after the patient was personally seen and examined by me. I have reviewed the chart and agree that the record accurately reflects by personal performance of the history, physical exam, data review, and medical decision-making, in the course for the patient. I have also personally directed the plan of care. 6
--- NOTE | 2018-08-20 19:05 | CARD ---
APPROVED REPORT Date of service: 08/20/2018 EXAM: Two-dimensional and M-mode echocardiogram with Doppler and color Doppler. INDICATION CVA/TIA 2D DIMENSIONS Left Atrium (2D)3.4 (1.6-4.0cm)IVSd1.4 (0.7-1.1cm) LVDd3.5 (3.9-5.9cm)PWd1.3 (0.7-1.1cm) LVDs2.4 (2.5-4.0cm)FS (%) 30.3 % LVEF (%)58.8 (>50%) M-Mode DIMENSIONS Aortic Root2.90 (2.2-3.7cm)Aortic Cusp Exc.1.50 (1.5-2.0cm) Aortic Valve AoV Peak [id number]/Susan Peak GR.9mmHg Mitral Valve E/A ratio0.0 TDI E/Lateral E'0.0E/Medial E'0.0 Tricuspid Valve TR Peak [id number] [id number] Peak Gr.5mmHg [id number] LEFT VENTRICLE The left ventricle is normal size. There is mild concentric left ventricular hypertrophy. The left ventricular function is normal. The left ventricular ejection fraction is within the normal range. There is normal LV segmental wall motion. Transmitral Doppler flow pattern is Grade I-abnormal relaxation pattern. RIGHT VENTRICLE The right ventricle is normal size. There is normal right ventricular wall thickness. The right ventricular systolic function is normal. ATRIA The left atrium size is normal. The right atrium size is normal. AORTIC VALVE The aortic valve is not well visualized. There is trace aortic regurgitation. There is no aortic valvular stenosis. MITRAL VALVE The mitral valve is not well visualized. There is no mitral valve regurgitation noted. There is no mitral valve stenosis. TRICUSPID VALVE There is no tricuspid valve regurgitation noted. PULMONIC VALVE There is no pulmonic valvular regurgitation. GREAT VESSELS The aortic root is normal in size. The IVC is normal in size and collapses >50% with inspiration. <Conclusion> There is mild concentric left ventricular hypertrophy. The left ventricular function is normal. The left ventricular ejection fraction is within the normal range. There is normal LV segmental wall motion. Transmitral Doppler flow pattern is Grade I-abnormal relaxation pattern.
[2018-08-21 07:35] LABS: BASO # 0.02 K/mm3 (0.0-2.0); BASO % 0.4 % (0.0-3.0); EOS # 0.2 (0.0-0.7); EOS % 4.5 % (1.5-5.0); HEMOGLOBIN 11.5 g/dL (12.0-16.0); LYMPH # 1.8 (1.2-3.4); LYMPH % 35.8 % (22.0-35.0); MEAN CELL VOLUME 92.8 fl (80.0-105.0); MEAN CORPUSCULAR HEMOGLOBIN 29.6 pg (25.0-35.0); MEAN CORPUSCULAR HGB CONC 31.9 g/dl (31.0-37.0); MEAN PLATELET VOLUME 9.4 fl (7.0-11.0); MONO # 0.3 (0.1-0.6); MONO % 6.1 % (1.0-6.0); RBC 3.89 10^6/uL (3.5-6.1); RED CELL DISTRIBUTION WIDTH 13.4 % (11.5-14.5); WHITE BLOOD COUNT 4.9 10^3/uL (4.5-11.0)
[2018-08-21 07:55] LABS: ALB/GLOB RATIO 1.1 (1.1-1.8); ALBUMIN 3.4 g/dL (3.0-4.8); ALT/SGPT 26 U/L (7-56); AST/SGOT 19 U/L (14-36); BLOOD UREA NITROGEN 16 mg/dL (7-21); CALCIUM 9.3 mg/dL (8.4-10.5); GFR NON-AFRICAN AMERICAN > 60
[2018-08-21 08:25] VITALS: BP 136/73; PULSE 68; RESP 17; TEMP 98.1; O2SAT 100
[2018-08-21] MEDS: Insulin Reg-MEDIUM-Coverage SC SCH ×3 (08:40→16:22)
[2018-08-21] MEDS ORDERED: Dextrose 50% SYRINGE Inj (50 ml) IV PRN (13:05)
--- NOTE | 2018-08-21 15:51 | CP.PCM.DIS ---
<Tiki Mendezit - Last Filed: 08/21/18 17:14> Provider - Provider Date of Admission: 08/18/18 15:03 Attending physician: Claudia Saleh MD Primary care physician: NO PRIMARY CARE PROVIDER Consults: 08/17/18 05:13 Gastroenterology Consult Stat Comment: Consulting Provider: Ricky Alcantar Consulting Physician: Ricky Alcantar Reason for Consult: intractable vomiting 08/17/18 05:57 Diabetic Education Referral Routine Comment: Physician Instructions: Reason For Exam: dm uncontrolled 08/17/18 11:33 Neurology Consult Routine Comment: Consulting Provider: Myke Chowdary Consulting Physician: Myke Chowdary Reason for Consult: aphasia, hx of stroke 08/17/18 16:17 Stroke Center Referral Routine Comment: Physician Instructions: Reason For Exam: Infarcts on Head CT 08/17/18 16:42 Diabetic Education Referral Routine Comment: Physician Instructions: Reason For Exam: a1c 8.5 08/21/18 10:39 Discharge Planning [Case Management Referral] Routine Comment: Physician Instructions: Reason For Exam: clear medically to d/c from hosp today Reason for Referral: [facility] Eval Time Spent in preparation of Discharge (in minutes): 35 Hospital Course - Lab Results Lab Results: Micro Results 08/17/18 00:05 Blood Blood Culture - Preliminary NO GROWTH AFTER 4 DAYS 08/16/18 23:35 Blood Blood Culture - Preliminary 08/16/18 23:35 Blood Gram Stain - Final 08/17/18 02:17 Urine Random Urine Culture - Final 10-50,000 CFU/ML. MULTIPLE SPECIES. PROBABLE CONTAMINATION. Most Recent Lab Values WBC 4.9 10^3/uL (4.5-11.0) 08/21/18 07:00 RBC 3.89 10^6/uL (3.5-6.1) 08/21/18 07:00 Hgb 11.5 g/dL (12.0-16.0) L 08/21/18 07:00 Hct 36.1 % (36.0-48.0) 08/21/18 07:00 MCV 92.8 fl (80.0-105.0) 08/21/18 07:00 MCH 29.6 pg (25.0-35.0) 08/21/18 07:00 MCHC 31.9 g/dl (31.0-37.0) 08/21/18 07:00 RDW 13.4 % (11.5-14.5) 08/21/18 07:00 Plt Count 215 10^3/uL (120.0-450.0) 08/21/18 07:00 MPV 9.4 fl (7.0-11.0) 08/21/18 07:00 Neut % (Auto) 53.2 % (50.0-68.0) 08/21/18 07:00 Lymph % (Auto) 35.8 % (22.0-35.0) H 08/21/18 07:00 Kings % (Auto) 6.1 % (1.0-6.0) H 08/21/18 07:00 Eos % (Auto) 4.5 % (1.5-5.0) 08/21/18 07:00 Baso % (Auto) 0.4 % (0.0-3.0) 08/21/18 07:00 Lymph # (Auto) 1.8 (1.2-3.4) 08/21/18 07:00 Kings # (Auto) 0.3 (0.1-0.6) 08/21/18 07:00 Eos # (Auto) 0.2 (0.0-0.7) 08/21/18 07:00 Baso # (Auto) 0.02 K/mm3 (0.0-2.0) 08/21/18 07:00 Absolute Neuts (auto) 2.60 (1.4-6.5) 08/21/18 07:00 pO2 108 mm/Hg (30-55) H 08/16/18 23:35 VBG pH 7.47 (7.32-7.43) H 08/16/18 23:35 VBG pCO2 38.0 (40-60) L 08/16/18 23:35 VBG HCO3 27.7 mmol/l (21-28) 08/16/18 23:35 VBG Total CO2 28.9 mmol.L (22-28) H 08/16/18 23:35 VBG O2 Sat (Calc) 98.3 % (40-65) H 08/16/18 23:35 VBG Base Excess 3.9 mmol/L (0.0-2.0) H 08/16/18 23:35 VBG Potassium 4.1 mmol/L (3.6-5.2) 08/16/18 23:35 Sodium 130.0 mmol/L (132-148) L 08/16/18 23:35 Chloride 97.0 mmol/L (98-107) L 08/16/18 23:35 Glucose 86 mg/dl (65-105) 08/16/18 23:35 Lactate 1.1 mmol/L (0.7-2.1) 08/16/18 23:35 FiO2 21.0 % 08/16/18 23:35 Sodium 140 mmol/L (132-148) 08/21/18 07:00 Potassium 4.1 mmol/L (3.6-5.0) 08/21/18 07:00 Chloride 104 mmol/L (98-107) 08/21/18 07:00 Carbon Dioxide 29 mmol/L (21-33) 08/21/18 07:00 Anion Gap 11 (10-20) 08/21/18 07:00 BUN 16 mg/dL (7-21) 08/21/18 07:00 Creatinine 0.8 mg/dl (0.7-1.2) 08/21/18 07:00 Est GFR ( Amer) > 60 08/21/18 07:00 Est GFR (Non-Af Amer) > 60 08/21/18 07:00 POC Glucose (mg/dL) 281 mg/dL (65-110) H 08/21/18 11:21 Random Glucose 288 mg/dL (70-110) H 08/21/18 07:00 Hemoglobin A1c 8.5 % (4.2-6.5) H 08/17/18 08:00 Calcium 9.3 mg/dL (8.4-10.5) 08/21/18 07:00 Phosphorus 3.9 mg/dL (2.5-4.5) 08/21/18 07:00 Magnesium 1.8 mg/dL (1.7-2.2) 08/21/18 07:00 Total Bilirubin 0.5 mg/dL (0.2-1.3) 08/21/18 07:00 AST 19 U/L (14-36) 08/21/18 07:00 ALT 26 U/L (7-56) 08/21/18 07:00 Alkaline Phosphatase 83 U/L (38-126) 08/21/18 07:00 Lactate Dehydrogenase 749 U/L (333-699) H 08/16/18 23:35 Total Creatine Kinase 39 U/L (35-230) 08/16/18 23:35 Troponin I < 0.01 ng/mL 08/16/18 23:35 Total Protein 6.5 g/dL (5.8-8.3) 08/21/18 07:00 Albumin 3.4 g/dL (3.0-4.8) 08/21/18 07:00 Globulin 3.2 gm/dL 08/21/18 07:00 Albumin/Globulin Ratio 1.1 (1.1-1.8) 08/21/18 07:00 Triglycerides 170 mg/dL (35-160) H 08/18/18 07:00 Cholesterol 124 mg/dL (130-200) L 08/18/18 07:00 LDL Cholesterol Direct 68 mg/dL (0-129) 08/18/18 07:00 HDL Cholesterol 29 mg/dL (29-60) 08/18/18 07:00 Lipase 52 U/L (23-300) 08/16/18 23:35 Venous Blood Potassium 4.1 mmol/L (3.6-5.2) 08/16/18 23:35 Urine Color Yellow (YELLOW) 08/17/18 02:17 Urine Appearance Sl cloudy (CLEAR) 08/17/18 02:17 Urine pH 6.0 (4.7-8.0) 08/17/18 02:17 Ur Specific Brook <= 1.005 (1.005-1.035) 08/17/18 02:17 Urine Protein Negative mg/dL (<30 mg/dL) 08/17/18 02:17 Urine Glucose (UA) Negative mg/dL (NEGATIVE) 08/17/18 02:17 Urine Ketones Negative mg/dL (NEGATIVE) 08/17/18 02:17 Urine Blood Negative (NEGATIVE) 08/17/18 02:17 Urine Nitrate Negative (NEGATIVE) 08/17/18 02:17 Urine Bilirubin Negative (NEGATIVE) 08/17/18 02:17 Urine Urobilinogen 0.2 E.U./dL (<1 E.U./dL) 08/17/18 02:17 Ur Leukocyte Esterase Moderate Jayden/uL (NEGATIVE) H 08/17/18 02:17 Urine RBC 0 - 2 /hpf (0-2) 08/17/18 02:17 Urine WBC 5 - 10 /hpf (0-6) H 08/17/18 02:17 Ur Epithelial Cells 3 - 4 /hpf (0-5) 08/17/18 02:17 Urine Bacteria Few /hpf (NONE) 08/17/18 02:17 - Hospital Course Hospital Course: Anirudh Mendez, PGY1 Discharge Summary for Dr. Saleh Patient is a 68F PMHx of DM2, HTN, CVA (2017) who presented to [facility] with a one day hx of vomiting x5, lightheadedness and abdominal pain. Patient says she had a stroke in [place], followed up with a neurologist and physical therapist. Of note pt came back to [place] from [place] on 08/09 and lives with sons now. Patient was admitted for intractable nausea and vomiting. Initially, patient appeared to have some altered mental status on presentation. However, the next day the patient's mental status improved to her baseline. Neurology was placed on consult. GI was also placed on consult for the intractable n/v. CT A/P showed distended gallbladder with no gallstones. Head CT showed an infarctio ni nthe left thalamus and left occipital lobe. MRI Brain showed chronic hemorrhagic infarct in left occipital lobe with chronic appearing infarct in left thalamus. MRI Head/Neck was unremarkable. Patient was taking plavix at home which d/w neuro recommended that it be held due to hemorrhagic stroke. Family (brothers) came in for the patient and further information was obtained: in 07/16 patient had an acute inschemic L-[employer] infarct ([place]) in which she stayed on plavix on discharge. Since standard of care is 3 weeks of plavix s/p ischemic stroke, patient no longer requires this medication and was educated appropriately. Also talked to neuro, patient can stay on aspirin but plavix is not needed. Since nausea and vomiting resolved with prn zofran, GI signed off the case. Diet was advanced as tolerated. PT was on board for her CVA. They recommended acute rehab however patient has no insurance. As an alternative, she may receive outpatient physical therapy and receive a rolling walker. Patient also had an asymptomatic UTI for which she did not need antibiotics. Otherwise, during hospital course she improved. Upon reviewing all labs, vitals, and imaging, patient is hemodynamically stable for discharge to home. She will follow up with a PMD, Neurologist, Gasteroenterologist on discharge. Discharge Exam - Head Exam Head Exam: ATRAUMATIC, NORMAL INSPECTION, NORMOCEPHALIC - Eye Exam Eye Exam: Normal appearance Pupil Exam: NORMAL ACCOMODATION - ENT Exam ENT Exam: Normal Exam - Neck Exam Neck exam: Normal Inspection - Respiratory Exam Respiratory Exam: NORMAL BREATHING PATTERN. absent: Accessory Muscle Use, Chest Wall Tenderness, Rales, Rhonchi, Wheezes - Cardiovascular Exam Cardiovascular Exam: RRR, +S1, +S2 - GI/Abdominal Exam GI & Abdominal Exam: Normal Bowel Sounds, Soft. absent: Tenderness - Extremities Exam Extremities exam: normal inspection, pedal pulses present - Back Exam Back exam: NORMAL INSPECTION - Neurological Exam Neurological exam: Alert, CN II-XII Intact, Oriented x3 Additional comments: Patient has chronic mild, right sided residual defect in the RUE and RLE. - Psychiatric Exam Psychiatric exam: Normal Affect, Normal Mood - Skin Skin Exam: Dry, Intact, Normal Color, Warm Discharge Plan - Discharge Medications Prescriptions: amLODIPine [Norvasc] 5 mg PO DAILY #14 tab Atorvastatin [Lipitor] 40 mg PO DAILY #14 tab metFORMIN [glucOPHAGE] 850 mg PO BID #14 tab - Follow Up Plan Condition: STABLE Disposition: HOME/ ROUTINE Instructions: Transient Ischemic Attack, Stroke Additional Instructions: Please establish care with a Primary Medical Doctor after you leave the rehab center. Otherwise, you may follow up for your appointment at [facility] ([phone]) for August 27, 2018 at 2 pm. You will need to fill out the appropriate paperwork to change your insurance as you were instructed while you were in the hospital. Also, please bring identification. - You need to follow up with your Primary Care Doctor to check your kidney levels while you are taking your metformin medication. Please follow-up with neurologist, Dr Chowdary, so he can make further recommendations regarding your previous stroke. On imaging you were found to have gallbladder distention - it is recommended you follow-up with a manager licensing about this issue. Going forward, please DO NOT take your plavix. Continue the following home medications: 1. Aspirin 81mg once a day at 10AM 2. Lipitor 40mg daily at bedtime 3. Amlodipine 5mg once a day at 10AM 4. Famotidine 20mg once a day before breakfast 5. Irbesartan 300mg once a day 6. Metformin 850mg once a day at 10AM and once at 6PM 7. Gabapentin 300mg once a day at 10AM 8. Colace 100mg once a day as needed for constipation You are being given a script for outpatient physical therapy. You are also being given a script for a rolling walker as recommended by Physical Therapy. If symptoms return promptly go to your nearest emergency department. Referrals: Myke Chowdary MD [Staff Provider] - [facility] [Primary Care Provider] - <Claudia Saleh - Last Filed: 08/22/18 13:33> Provider - Provider Date of Admission: 08/18/18 15:03 Attending physician: Claudia Saleh MD Primary care physician: [facility] PRIMARY CARE PROVIDER Consults: 08/17/18 05:13 Gastroenterology Consult Stat Comment: Consulting Provider: Ricky Alcantar Consulting Physician: Ricky Alcantar Reason for Consult: intractable vomiting 08/17/18 05:57 Diabetic Education Referral Routine Comment: Physician Instructions: Reason For Exam: dm uncontrolled 08/17/18 11:33 Neurology Consult Routine Comment: Consulting Provider: Myke Chowdary Consulting Physician: Myke Chowdary Reason for Consult: aphasia, hx of stroke 08/17/18 16:17 Stroke Center Referral Routine Comment: Physician Instructions: Reason For Exam: Infarcts on Head CT 08/17/18 16:42 Diabetic Education Referral Routine Comment: Physician Instructions: Reason For Exam: a1c 8.5 08/21/18 10:39 Discharge Planning [Case Management Referral] Routine Comment: Physician Instructions: Reason For Exam: clear medically to d/c from hosp today Reason for Referral: [facility] Course - Lab Results Lab Results: Micro Results 08/17/18 00:05 Blood Blood Culture - Final NO GROWTH AFTER 5 DAYS 08/17/18 00:05 Blood Gram Stain - Final TEST NOT PERFORMED 08/16/18 23:35 Blood Blood Culture - Final Fusobacterium Necrophorum 08/16/18 23:35 Blood Gram Stain - Final 08/20/18 16:30 Blood-Venous Blood Culture - Preliminary NO GROWTH AFTER 24 HOURS 08/20/18 16:00 Blood-Venous Blood Culture - Preliminary NO GROWTH AFTER 24 HOURS 08/17/18 02:17 Urine Random Urine Culture - Final 10-50,000 CFU/ML. MULTIPLE SPECIES. PROBABLE CONTAMINATION. Most Recent Lab Values WBC 4.9 10^3/uL (4.5-11.0) 08/21/18 07:00 RBC 3.89 10^6/uL (3.5-6.1) 08/21/18 07:00 Hgb 11.5 g/dL (12.0-16.0) L 08/21/18 07:00 Hct 36.1 % (36.0-48.0) 08/21/18 07:00 MCV 92.8 fl (80.0-105.0) 08/21/18 07:00 MCH 29.6 pg (25.0-35.0) 08/21/18 07:00 MCHC 31.9 g/dl (31.0-37.0) 08/21/18 07:00 RDW 13.4 % (11.5-14.5) 08/21/18 07:00 Plt Count 215 10^3/uL (120.0-450.0) 08/21/18 07:00 MPV 9.4 fl (7.0-11.0) 08/21/18 07:00 Neut % (Auto) 53.2 % (50.0-68.0) 08/21/18 07:00 Lymph % (Auto) 35.8 % (22.0-35.0) H 08/21/18 07:00 Kings % (Auto) 6.1 % (1.0-6.0) H 08/21/18 07:00 Eos % (Auto) 4.5 % (1.5-5.0) 08/21/18 07:00 Baso % (Auto) 0.4 % (0.0-3.0) 08/21/18 07:00 Lymph # (Auto) 1.8 (1.2-3.4) 08/21/18 07:00 Kings # (Auto) 0.3 (0.1-0.6) 08/21/18 07:00 Eos # (Auto) 0.2 (0.0-0.7) 08/21/18 07:00 Baso # (Auto) 0.02 K/mm3 (0.0-2.0) 08/21/18 07:00 Absolute Neuts (auto) 2.60 (1.4-6.5) 08/21/18 07:00 pO2 108 mm/Hg (30-55) H 08/16/18 23:35 VBG pH 7.47 (7.32-7.43) H 08/16/18 23:35 VBG pCO2 38.0 (40-60) L 08/16/18 23:35 VBG HCO3 27.7 mmol/l (21-28) 08/16/18 23:35 VBG Total CO2 28.9 mmol.L (22-28) H 08/16/18 23:35 VBG O2 Sat (Calc) 98.3 % (40-65) H 08/16/18 23:35 VBG Base Excess 3.9 mmol/L (0.0-2.0) H 08/16/18 23:35 VBG Potassium 4.1 mmol/L (3.6-5.2) 08/16/18 23:35 Sodium 130.0 mmol/L (132-148) L 08/16/18 23:35 Chloride 97.0 mmol/L (98-107) L 08/16/18 23:35 Glucose 86 mg/dl (65-105) 08/16/18 23:35 Lactate 1.1 mmol/L (0.7-2.1) 08/16/18 23:35 FiO2 21.0 % 08/16/18 23:35 Sodium 140 mmol/L (132-148) 08/21/18 07:00 Potassium 4.1 mmol/L (3.6-5.0) 08/21/18 07:00 Chloride 104 mmol/L (98-107) 08/21/18 07:00 Carbon Dioxide 29 mmol/L (21-33) 08/21/18 07:00 Anion Gap 11 (10-20) 08/21/18 07:00 BUN 16 mg/dL (7-21) 08/21/18 07:00 Creatinine 0.8 mg/dl (0.7-1.2) 08/21/18 07:00 Est GFR ( Amer) > 60 08/21/18 07:00 Est GFR (Non-Af Amer) > 60 08/21/18 07:00 POC Glucose (mg/dL) 225 mg/dL (65-110) H 08/21/18 16:16 Random Glucose 288 mg/dL (70-110) H 08/21/18 07:00 Hemoglobin A1c 8.5 % (4.2-6.5) H 08/17/18 08:00 Calcium 9.3 mg/dL (8.4-10.5) 08/21/18 07:00 Phosphorus 3.9 mg/dL (2.5-4.5) 08/21/18 07:00 Magnesium 1.8 mg/dL (1.7-2.2) 08/21/18 07:00 Total Bilirubin 0.5 mg/dL (0.2-1.3) 08/21/18 07:00 AST 19 U/L (14-36) 08/21/18 07:00 ALT 26 U/L (7-56) 08/21/18 07:00 Alkaline Phosphatase 83 U/L (38-126) 08/21/18 07:00 Lactate Dehydrogenase 749 U/L (333-699) H 08/16/18 23:35 Total Creatine Kinase 39 U/L (35-230) 08/16/18 23:35 Troponin I < 0.01 ng/mL 08/16/18 23:35 Total Protein 6.5 g/dL (5.8-8.3) 08/21/18 07:00 Albumin 3.4 g/dL (3.0-4.8) 08/21/18 07:00 Globulin 3.2 gm/dL 08/21/18 07:00 Albumin/Globulin Ratio 1.1 (1.1-1.8) 08/21/18 07:00 Triglycerides 170 mg/dL (35-160) H 08/18/18 07:00 Cholesterol 124 mg/dL (130-200) L 08/18/18 07:00 LDL Cholesterol Direct 68 mg/dL (0-129) 08/18/18 07:00 HDL Cholesterol 29 mg/dL (29-60) 08/18/18 07:00 Lipase 52 U/L (23-300) 08/16/18 23:35 Venous Blood Potassium 4.1 mmol/L (3.6-5.2) 08/16/18 23:35 Urine Color Yellow (YELLOW) 08/17/18 02:17 Urine Appearance Sl cloudy (CLEAR) 08/17/18 02:17 Urine pH 6.0 (4.7-8.0) 08/17/18 02:17 Ur Specific Brook <= 1.005 (1.005-1.035) 08/17/18 02:17 Urine Protein Negative mg/dL (<30 mg/dL) 08/17/18 02:17 Urine Glucose (UA) Negative mg/dL (NEGATIVE) 08/17/18 02:17 Urine Ketones Negative mg/dL (NEGATIVE) 08/17/18 02:17 Urine Blood Negative (NEGATIVE) 08/17/18 02:17 Urine Nitrate Negative (NEGATIVE) 08/17/18 02:17 Urine Bilirubin Negative (NEGATIVE) 08/17/18 02:17 Urine Urobilinogen 0.2 E.U./dL (<1 E.U./dL) 08/17/18 02:17 Ur Leukocyte Esterase Moderate Jayden/uL (NEGATIVE) H 08/17/18 02:17 Urine RBC 0 - 2 /hpf (0-2) 08/17/18 02:17 Urine WBC 5 - 10 /hpf (0-6) H 08/17/18 02:17 Ur Epithelial Cells 3 - 4 /hpf (0-5) 08/17/18 02:17 Urine Bacteria Few /hpf (NONE) 08/17/18 02:17 Attending/Attestation - Attestation I have personally seen and examined this patient.: Yes I have fully participated in the care of the patient.: Yes I have reviewed all pertinent clinical information, including history, physical exam and plan: Yes Notes (Text): 08/22/18 13:21 Medical record note made by the resident after discussion with my direction and input after the patient was personally seen and examined by me. I have reviewed the chart and agree that the record accurately reflects by personal performance of the history, physical exam, data review, and medical decision-making, in the course for the patient. I have also personally directed the plan of care. 68 year old female with past medical history of CVA with right sided residual weakness, hypertension and diabetes who presented with intractable nausea/vomiting with abdominal pain .CT abd/pelvis showed gallbladder distention without calcified gallstones and bilateral adrenal gland nodular hypertrophy. Recommended outpatient follow up. GI symptoms resolved. Patient is tolerating diet. CT head showed hypodense region within the left thalamus and left occipital lobe consistent with infarction. MRI brain showed chronic appearing hemorrhagic infarct in the left occipital lobe and chronic appearing infarct in the left thalamus. MRA head/neck were negative. Patient does not has any New Neuro deficit.Patient stroke is more than 3 weeks based on history.As recommended by Neurology, plavix was discontinued. Patient one blood culture bottle from ER grew Fusobacterium Necrophorium.The other blood cultures bottle remain negative.Patient repeat blood cultrures also remain negative.She remain afebrile during her stay in the hospital.The positive blood culture in one bottle is contaminated.Patient did not has any Sinus or ENT symptoms.Echo was negative for any vegetation. Patient blood sugars was running high, she has been started on Metformin and has been advised to keep record of blood sugars for his PCP. Patient will follow up with PCP and Neurology. Management plan was discussed in detail with patient. Education was provided. 08/22/18 13:30
[2018-08-21] MEDS ORDERED: Insulin Reg-LOW-Coverage SC SCH (16:30)
== END 2018-08-21 21:29 | disposition home or self-care (01) | DRG 392 ==
LOC: ED 22:27 → ERH 08-17 04:11 → 3RNO 08-17 05:15 → OBSVTOIN 08-18 15:03 → 3RNO 08-19 14:47
PROVIDERS: ADMIT Hospitalist; ATTEND Internal Medicine
DX: R11.2 Nausea with vomiting, unspecified (principal); R47.01 Aphasia; N39.0 Urinary tract infection, site not specified; R10.33 Periumbilical pain; I10 Essential (primary) hypertension; E11.9 Type 2 diabetes mellitus without complications; E03.9 Hypothyroidism, unspecified; K59.00 Constipation, unspecified; Z87.891 Personal history of nicotine dependence; Z86.73 Personal history of transient ischemic attack (TIA), and cerebral infarction without residual deficits; K44.9 Diaphragmatic hernia without obstruction or gangrene; K82.8 Other specified diseases of gallbladder; E78.5 Hyperlipidemia, unspecified; Z79.02 Long term (current) use of antithrombotics/antiplatelets; Z79.82 Long term (current) use of aspirin; Z83.3 Family history of diabetes mellitus; Z98.49 Cataract extraction status, unspecified eye